=== PATIENT | female | born 1930 | race Asian ===

== ENCOUNTER 2018-12-04 18:35 | Inpatient (IN) | payer MEDICARE, OTHER ==
[~2018-12-04] VITALS: Ht 154.9 cm; Wt 56.4 kg
[2018-12-04] MEDS ORDERED: SOD CHLORIDE 0.9% 1,000 ML IV STA (19:31)
[2018-12-04] MEDS ORDERED: ONDANSETRON 4 MG INJ IV STA (19:31)
[2018-12-04] MEDS ORDERED: morphine 2 MG INJ IV STA (19:31)
[2018-12-04] MEDS ORDERED: MEGE40TA2 PO (21:27)
[2018-12-04] MEDS ORDERED: METO-319 PO (21:27)
[2018-12-04] MEDS ORDERED: RANO500T2 PO (21:27)
[2018-12-04] MEDS ORDERED: FER325 PO (21:27)
[2018-12-04] MEDS ORDERED: LOSA25TA12 PO (21:27)
[2018-12-04] MEDS ORDERED: GABA300C16 PO (21:27)
[2018-12-04] MEDS ORDERED: ATOR20TA38 PO (21:27)
[2018-12-04] MEDS ORDERED: DEXL30CA2 PO (21:27)
[2018-12-04] MEDS ORDERED: RAMI10CA48 PO (21:27)
[2018-12-04] MEDS ORDERED: CLOP75TA19 PO (21:27)
[2018-12-04] MEDS ORDERED: CEFTRIAXONE 1 GM/50 ML (PMX) 50 ML IVPB ONE (21:30)
[2018-12-04] MEDS ORDERED: IOHEXOL 350MG/ML 50 ML BTL ONE (21:43)
[2018-12-04] MEDS ORDERED: METOCLOPRAMIDE 10 MG INJ IV ONE (23:30)
--- NOTE | 2018-12-04 23:45 | ERD ---
ER Documentation Chief Complaint Chief Complaint AP WITH VOMITING X'S 2 DAYS HPI 88-year-old female with a history of hypertension presenting with epigastric abdominal pain for the past 3 days that has been constant, aching, nonradiating with associated nausea and nonbloody, nonbilious vomiting. Denies hematochezia or melena. Having normal bowel movements. No fever or chills. No dysuria. She is a very poor historian as his family. She states that she has not had surgery before, however her daughter states that she has but she does not know which surgery. ROS All systems reviewed and are negative except as per history of present illness. Medications Home Meds Reported Medications Metoprolol Succinate* (Toprol XL*) 50 Mg Tab.er.24h, 50 MG PO DAILY, #30 TAB 12/04/18 Dexlansoprazole (Dexilant) 30 Mg Cap.dr.mp, 30 MG PO DAILY PRN for GASTROINTE STINAL UPSET, #30 CAP 12/04/18 Losartan Potassium* (Losartan Potassium*) 25 Mg Tablet, 25 MG PO QAM, TAB 12/04/18 Gabapentin* (Gabapentin*) 300 Mg Capsule, 300 MG PO BID, #60 CAP 12/04/18 Clopidogrel Bisulfate* (Clopidogrel Bisulfate*) 75 Mg Tablet, 75 MG PO DAILY, #30 TAB 12/04/18 Ramipril (Ramipril) 10 Mg Capsule, 10 MG PO DAILY, CAP 12/04/18 Megestrol Acetate* (Megestrol Acetate*) 40 Mg Tablet, 40 MG PO QAM, TAB 12/04/18 Ranolazine* (Ranexa*) 500 Mg Tab.sr.12h, 500 MG PO Q12, TAB 12/04/18 Ferrous Sulfate* (Ferrous Sulfate*) 325 Mg Tabec, 325 MG PO QAM, TAB 12/04/18 Atorvastatin Calcium* (Atorvastatin Calcium*) 20 Mg Tablet, 20 MG PO QHS, #30 TAB 12/04/18 Allergies Allergies: Coded Allergies: Penicillins (Verified Allergy, Unknown, 12/04/18) PMhx/Soc Medical and Surgical Hx: pt denies Medical Hx, pt denies Surgical Hx History of Surgery: No Anesthesia Reaction: No Hx Neurological Disorder: No Hx Respiratory Disorders: No Hx Cardiac Disorders: Yes (HTN, HYPERLIPIDEMIA) Hx Psychiatric Problems: No Hx Miscellaneous Medical Probl: No Hx Alcohol Use: No Hx Substance Use: No Hx Tobacco Use: No Smoking Status: Never smoker FmHx Family History: No coronary disease Physical Exam Vitals Vital Signs Date Temp Pulse Resp B/P (MAP) Pulse Ox O2 O2 Flow FiO2 Time Delivery Rate 12/04/18 100 18 120/79 98 Room Air 23:01 (93) 12/04/18 95 18 111/64 97 Room Air 21:39 (80) 12/04/18 99.2 91 18 143/101 97 18:40 (115) Physical Exam Const: No acute distress Head: Atraumatic Eyes: Normal Conjunctiva ENT: Dry mucous membranes. Normal External Ears, Nose and Mouth. Neck: Full range of motion. No meningismus. Resp: Clear to auscultation bilaterally Cardio: Regular rate and rhythm, no murmurs. 2+ distal pulses in all 4 extremities Abd: Soft, non tender, non distended. No palpable mass. No pulsatile masses. Normal bowel sounds Skin: No petechiae or rashes Back: No midline or flank tenderness Ext: No cyanosis, or edema Neur: Awake and alert Psych: Normal Mood and Affect Result Diagram: 12/04/18195512/04/181955 Results 24 hrs Laboratory Tests Test 12/04/18 19:56 12/04/18 20:46 White Blood Count 11.1 10^3/ul Red Blood Count 4.51 10^6/ul Hemoglobin 14.0 g/dl Hematocrit 42.9 % Mean Corpuscular Volume 95.1 fl Mean Corpuscular Hemoglobin 31.0 pg Mean Corpuscular Hemoglobin Concent 32.6 g/dl Red Cell Distribution Width 13.1 % Platelet Count 265 10^3/UL Mean Platelet Volume 8.9 fl Immature Granulocytes % 0.700 % Neutrophils % 62.8 % Lymphocytes % 19.5 % Monocytes % 14.9 % Eosinophils % 1.0 % Basophils % 1.1 % Nucleated Red Blood Cells % 0.0 /100WBC Immature Granulocytes # 0.080 10^3/ul Neutrophils # 7.0 10^3/ul Lymphocytes # 2.2 10^3/ul Monocytes # 1.7 10^3/ul Eosinophils # 0.1 10^3/ul Basophils # 0.1 10^3/ul Nucleated Red Blood Cells # 0.0 10^3/ul Prothrombin Time 12.3 Sec Prothrombin Time Ratio 1.0 INR International Normalized Ratio 0.90 Activated Partial Thromboplast Time 31.8 Sec Urine Color YELLOW Urine Clarity CLOUDY Urine pH 6.0 Urine Specific [place] 1.008 Urine Ketones NEGATIVE mg/dL Urine Nitrite NEGATIVE mg/dL Urine Bilirubin NEGATIVE mg/dL Urine Urobilinogen NEGATIVE mg/dL Urine Leukocyte Esterase 3+ Yadira/ul Urine Microscopic RBC 26 /HPF Urine Microscopic WBC > 182 /HPF Urine Bacteria MANY /HPF Urine Hemoglobin 3+ mg/dL Urine Glucose NEGATIVE mg/dL Urine Total Protein NEGATIVE mg/dl Sodium Level 137 mmol/L Potassium Level 4.2 mmol/L Chloride Level 104 mmol/L Carbon Dioxide Level 23 mmol/L Anion Gap 10 Blood Urea Nitrogen 15 mg/dl Creatinine 0.90 mg/dl Est Glomerular Filtrat Rate mL/min mL/min Glucose Level 98 mg/dl Calcium Level 10.6 mg/dl Total Bilirubin 0.7 mg/dl Direct Bilirubin 0.00 mg/dl Indirect Bilirubin 0.7 mg/dl Aspartate Amino Transf (AST/SGOT) 25 IU/L Alanine Aminotransferase (ALT/SGPT) 7 IU/L Alkaline Phosphatase 65 IU/L Troponin I 0.077 ng/ml Total Protein 7.8 g/dl Albumin 4.2 g/dl Globulin 3.60 g/dl Albumin/Globulin Ratio 1.16 Lipase 152 U/L POC Venous Lactate 1.1 mmol/L Current Medications Medications Dose Sig/Rossy Start Time Status Last (Trade) Ordered Route PRN Stop Time Admin Dose Reason Admin Sodium 1,000 ml @ Q1H STAT 12/04/18 DC 12/04/18 Chloride 1,000 mls/hr IV 19:31 20:07 12/04/18 20:30 Morphine 2 mg ONCE STAT 12/04/18 DC 12/04/18 Sulfate IV 19:31 20:07 (morphine) 12/04/18 19:33 Ondansetron 4 mg ONCE STAT 12/04/18 DC 12/04/18 HCl (Zofran IV 19:31 20:07 Inj) 12/04/18 19:33 Ceftriaxone 50 ml @ ONCE ONCE 12/04/18 DC 12/04/18 Sodium 100 mls/hr IVPB 21:30 21:38 12/04/18 21:59 Iohexol 50 ml STK-MED 12/04/18 DC (Omnipaque ONCE .ROUTE 21:43 350mg/ ml) 12/04/18 21:44 5 mg ONCE ONCE 12/04/18 DC 12/04/18 Metoclopramid IV 23:30 23:25 e HCl 12/04/18 23:31 (Reglan) Procedures/MDM EMERGENT LABS AND DIAGNOSTIC STUDIES: Lab Results above were reviewed and interpreted by me. CBC: no anemia or evidence of infection CMP: No evidence of clinically significant electrolyte abnormality, acidosis, renal failure, hypoglycemia, liver disease, or biliary obstruction Lipase: no evidence of pancreatitis Troponin within normal limits, not indicative of cardiac ischemia Lactate within normal limits without evidence of sepsis or tissue hypoperfusion UA: Consistent with UTI 12-lead EKG was interpreted by Da Quigley MD: Sinus rhythm with PACs at 85 bpm LVH Normal intervals No acute ST or T wave changes suggestive of acute ischemia or STEMI. Radiology Results as interpreted by Radiology below were reviewed by Martell Quigley MD: CT abdomen and pelvis shows no acute abnormalities CTA chest, abdomen, pelvis shows thoracic ascending aneurysm without dissection or rupture. No evidence of ischemic bowel. No evidence of abdominal aortic aneurysm. Initial Nursing notes reviewed. Previous Medical Records requested via the Electronic Health Record. EMERGENCY DEPARTMENT COURSE / MEDICAL DECISION MAKING: Patient is presenting with upper abdominal pain with stable vitals. No evidence of acute surgical abdomen on exam. However given the patient's age, she is high risk for serious etiology for her pain. Labs not show any significant abnormalities other than UTI on urinalysis. CT of the abdomen and pelvis was done showing a thoracic aneurysm. For this reason CT angiogram was ordered to evaluate for possible dissection. CT angiogram did not show any acute abnormalities but an incidental finding of thoracic ascending aneurysm was noted. Patient was treated with IV fluids and antiemetics without improvement of her symptoms. Upon reevaluation, she is complaining of nausea and vomiting more than pain. Urinalysis is consistent with UTI. Doubt pyelonephritis. Doubt sepsis. Patient has been given antibiotics and will be admitted for further hydration, workup and management. Accepting Care Team: Current data and ongoing care discussed. Time: Time of admission Primary Provider: Dr. Zain Pressley Diagnosis: Primary Impression: Abdominal pain Abdominal location: upper abdomen, unspecified Qualified Codes: R10.10 - Upper abdominal pain, unspecified Additional Impressions: Intractable nausea and vomiting Vomiting type: unspecified Qualified Codes: R11.2 - Nausea with vomiting, unspecified Thoracic ascending aortic aneurysm UTI (urinary tract infection) Condition: Fair PATRICA QUIGLEY MD Dec 04, 2018 23:45
[2018-12-05] MEDS ORDERED: NACL 0.9% 3 ML SYG IV SCH
[2018-12-05] MEDS ORDERED: ACETAMINOPHEN 325 MG TAB PO PRN ×2
[2018-12-05] MEDS ORDERED: BISACODYL (EC) 5 MG TAB PO PRN
[2018-12-05] MEDS ORDERED: ONDANSETRON 4 MG INJ IV PRN ×2
[2018-12-05] MEDS ORDERED: DOCUSATE SODIUM 100 MG CAP PO PRN
[2018-12-05] MEDS: SOD CHLORIDE 0.9% 1,000 ML IV SCH ×3 (00:30→15:46)
[2018-12-05 00:51] VITALS: Ht 154.9 cm; Wt 56.4 kg
[2018-12-05 00:59] VITALS: BP 132/70; PULSE 86; RESP 18
--- NOTE | 2018-12-05 06:01 | HP ---
Date/Time of Note Date/Time of Note DATE: 12/05/18 TIME: 06:01 Assessment/Plan VTE Prophylaxis SCD applied (from Nsg): Yes Pharmacological prophylaxis: NA/contraindicated Pharm contraindication: low risk/ambulating Lines/Catheters IV Catheter Type (from Nrsg): Peripheral IV Urinary Cath still in place: No Assessment/Plan Hospital Course This is a 88-year-old female being admitted to the [facility] for: #1 abdominal pain: Likely multifactorial secondary to underlying urinary tract infection and/or possible underlying abdominal pelvic pathology. Patient does have urinary tract infection. At the current time will treat with ceftriaxone 1 g every 24 hours. Will await culture results. CT imaging studies concerning for possible underlying malignancy please see #2. #[address]:11 mm nodule lower pole right lobe thyroid gland. Question adenoma. Sonographic correlation could be performed. 2.9 cm low attenuation mass in the posterior mid to lower pole right kidney. Appearance is somewhat atypical for a cyst on noncontrast CT. Further evaluation with contrast enhanced CT abdomen is recommended to evaluate possible renal cell carcinoma. Multiple urinary bladder diverticula. Urinary bladder wall is also thickened which may be due to acute or chronic cystitis.Low attenuation area in the uterus measuring 18 cm in diameter. Finding is worrisome for abnormal endometrial thickening in a postmenopausal female, raising the possibility of endometrial neoplasm. Further evaluation with pelvic ultrasound presents with endovaginal probe if possible is recommended. -CT abdomen pelvis with contrast -Ultrasound of the thyroid, thyroid studies -Pelvic ultrasound -Hematology consultation #3 UTI: ceftriaxone 1 gram q 24hrs. #4 Aneurysmal Ascending thoracic aorta: 4.8 cm aneurysmal dilatation ascending thoracic aorta and 3.8 cm aneurysmal dilatation of the arch. No abdominal aortic aneurysm. No evidence of aortic dissection. At the current time we will need to manage blood pressure. Follow-up as an outpatient with CT surgery. #5 hypertension: Resume metoprolol, will need to confirm patient's home medications #6 questionable coronary artery disease: We will need to confirm patient's home medications, will hold off on Plavix at the current time given possible need for procedure. #7 GERD: Continue PPI #8 hyperlipidemia: Continue statin, confirm patient's home medications #9 DVT GI prophylaxis: SCDs, no GI prophylaxis indicated Further treatment strategy will be implemented as per the clinical course Will need to get in touch with family in the AM to corroborate history. Result Diagram: 12/04/18195512/04/181955 Results 24hrs Laboratory Tests Test 12/04/18 19:56 12/04/18 20:46 White Blood Count 11.1 H Red Blood Count 4.51 Hemoglobin 14.0 Hematocrit 42.9 Mean Corpuscular Volume 95.1 Mean Corpuscular Hemoglobin 31.0 Mean Corpuscular Hemoglobin Concent 32.6 Red Cell Distribution Width 13.1 Platelet Count 265 Mean Platelet Volume 8.9 Immature Granulocytes % 0.700 H Neutrophils % 62.8 Lymphocytes % 19.5 Monocytes % 14.9 H Eosinophils % 1.0 Basophils % 1.1 Nucleated Red Blood Cells % 0.0 Immature Granulocytes # 0.080 H Neutrophils # 7.0 Lymphocytes # 2.2 Monocytes # 1.7 H Eosinophils # 0.1 Basophils # 0.1 Nucleated Red Blood Cells # 0.0 Prothrombin Time 12.3 Prothrombin Time Ratio 1.0 INR International Normalized Ratio 0.90 Activated Partial Thromboplast Time 31.8 Urine Color YELLOW Urine Clarity CLOUDY A Urine pH 6.0 Urine Specific [place] 1.008 Urine Ketones NEGATIVE Urine Nitrite NEGATIVE Urine Bilirubin NEGATIVE Urine Urobilinogen NEGATIVE Urine Leukocyte Esterase 3+ H Urine Microscopic RBC 26 H Urine Microscopic WBC > 182 H Urine Bacteria MANY A Urine Hemoglobin 3+ H Urine Glucose NEGATIVE Urine Total Protein NEGATIVE Sodium Level 137 Potassium Level 4.2 Chloride Level 104 Carbon Dioxide Level 23 Anion Gap 10 Blood Urea Nitrogen 15 Creatinine 0.90 Est Glomerular Filtrat Rate mL/min Glucose Level 98 Calcium Level 10.6 H Total Bilirubin 0.7 Direct Bilirubin 0.00 Indirect Bilirubin 0.7 Aspartate Amino Transf (AST/SGOT) 25 Alanine Aminotransferase (ALT/SGPT) 7 L Alkaline Phosphatase 65 Troponin I 0.077 Total Protein 7.8 Albumin 4.2 Globulin 3.60 H Albumin/Globulin Ratio 1.16 Lipase 152 POC Venous Lactate 1.1 HPI/ROS Admit Date/Time Admit Date/Time Dec 04, 2018 at 23:39 Hx of Present Illness Chief complaint: Epigastric pain times 3 days 88-year-old female with a history of hypertension presenting with epigastric abdominal pain for the past 3 days that has been constant, aching, nonradiating with associated nausea and nonbloody, nonbilious vomiting. Denies hematochezia or melena. Having normal bowel movements. No fever or chills. No dysuria. Apparently patient has had a surgery before but she does not recall. She has been having increased urination. She denies any vaginal bleeding. No previous history of diagnosis of cancer. Allergies: Penicillin Medications: See MAR ROS Const: As per HPI Eyes : No pain discharge or redness or change in visual acuity ENT: No pain, sore throat, congestion, congestion, dysphagia or discharge Respiratory: No shortness of breath, cough, sputum, wheezing, or pleuritic pain Cardiovascular: No chest pain, palpitation, PND, or edema GI : As per HPI Genitourinary: As per HPI Musculoskeletal: No joint pain, back pain, neck pain, restricted range of motion in neck or joints Skin: No rash, bruising or hives Neuro: No headache, dizziness, syncope, seizure, focal weakness Endocrine: No polyuria, polydipsia, temperature intolerance Psych: No hallucination, depression, anxiety or suicidal ideation PMH/Family/Social Past Medical History HTN, HYPERLIPIDEMIA, coronary artery disease, acid reflux, anemia Medications Current Medications Ondansetron HCl (Zofran Inj) 4 mg BRIDGE ORDER PRN IV NAUSEA/VOMITING; Start 12/05/18 at 00:00; Stop 12/05/18 at 23:59 Acetaminophen (Tylenol Tab) 650 mg ER BRIDGE PRN PO .MILD PAIN 1-3 OR TEMP; Start 12/05/18 at 00:00; Stop 12/05/18 at 23:59 Sodium Chloride 1,000 ml @ 80 mls/hr [id number] IV Last administered on 12/05/18at 00:30; Admin Dose 80 MLS/HR; Start 12/04/18 at 23:41 IV Flush (NS 3 ml) 3 ml PER PROTOCOL IV ; Start 12/05/18 at 00:00 Ondansetron HCl (Zofran Inj) 4 mg Q6H PRN IV NAUSEA/VOMITING; Start 12/05/18 at 00:00 Acetaminophen (Tylenol Tab) 650 mg Q6H PRN PO .PAIN 1-3 OR TEMP; Start 12/05/18 at 00:00 Docusate Sodium (Colace) 100 mg Q12H PRN PO .CONSTIPATION; Start 12/05/18 at 00:00 Bisacodyl (Dulcolax) 5 mg DAILY PRN PO .CONSTIPATION; Start 12/05/18 at 00:00 Ceftriaxone Sodium 50 ml @ 100 mls/hr Q24H IVPB ; Start 12/05/18 at 21:00 Coded Allergies: Penicillins (Verified Allergy, Unknown, 12/04/18) Past Surgical History Unknown Family History Significant Family History: no pertinent family hx Social History Alcohol Use: none Smoking Status: Never smoker Drug Use: none Exam/Review of Systems Vital Signs Vitals Vital Signs Date Temp Pulse Resp B/P (MAP) Pulse Ox O2 O2 Flow FiO2 Time Delivery Rate 12/05/18 97.3 86 18 132/70 94 Room Air 00:59 (90) Intake and Output 12/04/18 12/04/18 12/05/18 1515:00 23:00 07:00 IntakeIntake Total 1050 ml 250 ml BalanceBalance 1050 ml 250 ml Exam Exam General: Patient is currently lying in bed in no acute distress HEENT: Atraumatic, normocephalic. The pupils are equal, round and reactive. Extraocular motor are intact Neck: Supple with full range of motion. No rigidity or meningismus Chest: Nontender Lungs: Clear to auscultation bilaterally no crackles rales or wheezing Heart: Normal S1-S2, Regular rhythm and rate. No murmur, S3, or S4 Abdomen: Soft , tenderness around the umbilicus area and suprapubic region, nondistended , bowel sounds are present. No guarding no rebound tenderness , No masses or organomegaly. No costovertebral temporal angle mass Extremities: Normal to inspection, no edema no cyanosis Neurologic: Normal mental status, speech normal, cranial nerves II through XII are intact, motor and sensory are intact, Additional Comments PROCEDURE: CT abdomen and pelvis without contrast. CLINICAL INDICATION: 88-year-old female. Abdominal pain with vomiting for 2 days. TECHNIQUE: CT scan of the abdomen and pelvis without contrast was performed on a multi-slice CT scanner utilizing axial imaging from the lung bases through the pubis symphysis. One or more the following does reduction techniques were utilized: Automated exposure control, adjustment of the mA/ or kV according to patient's size, or use of iterative reconstruction technique. Sagittal and coronal reformatted images were made. DICOM images are available for review. The CTDIvol is 5.96 mGy and the DLP is 319.05 mGycm. COMPARISON: None. FINDINGS: CT abdomen Visualized lung bases: Atelectasis posterior right lower lobe. 1.5 cm soft tissue mass with central calcification right lower lobe (series 3 image 7). Pleural parenchymal thickening posterior lingula. Aneurysmal dilatation of the ascending thoracic aorta, measuring 4.5 cm. No significant pleural or pericardial effusion. Liver: Limited evaluation without IV contrast. 2 low attenuation lesions at the dome of the right hepatic lobe, largest measuring 2.5 cm. Gallbladder and bile ducts: Small calcified gallstones are present in the gallbladder. No biliary ductal dilatation. Spleen: Normal appearance. Pancreas: Normal appearance. No ductal dilatation. No mass. No peripancreatic stranding. Adrenal glands: Normal appearance. 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 2.9 cm low attenuation mass posterior mid to lower pole right kidney, somewhat atypical appearance for a cyst. No hydronephrosis. No calcified renal stones. Vasculature: No abdominal aortic aneurysm. Calcified plaque present. Negative IVC. Lymph nodes: No adenopathy. GI: There filled distal esophagus. No hiatal hernia. Decompressed stomach. No evidence of obstruction or bowel wall thickening. Diverticulosis descending colon. Peritoneal cavity: No free fluid or free air. CT pelvis GI: Negative terminal ileum. Appendix is not identified. Minimal sigmoid diverticulosis. Negative rectum. : There are least 3 urinary bladder diverticula identified. New circumferential urinary bladder wall thickening. Low attenuation area in the uterus measuring 18 mm in diameter on coronal images. This could represent an abnormally thickened endometrium or submucosal leiomyoma. No adnexal mass. Peritoneal cavity: No free fluid. Small left-sided fat filled inguinal hernia. Lymph nodes: No adenopathy. Osseous structures: The bones are demineralized. No endplate fractures. Multilevel thoracic and lumbar disc degeneration with vacuum phenomenon. Bilateral L4-5 and L5-S1 facet arthrosis. IMPRESSION: 1. Ascending thoracic aortic aneurysm, incompletely imaged. CT angiography of the chest recommended for further evaluation. 2. 1.5 cm soft tissue mass with central calcification in the right lower lobe. The central calcification suggests a benign or granulomatous etiology. This could also be further evaluated with the CT angiogram chest exam. 3. Cholelithiasis. 4. 2.9 cm low attenuation mass in the posterior mid to lower pole right kidney. Appearance is somewhat atypical for a cyst on noncontrast CT. Further evaluation with contrast enhanced CT abdomen is recommended to evaluate possible renal cell carcinoma. 5. Multiple urinary bladder diverticula. Urinary bladder wall is also thickened which may be due to acute or chronic cystitis. 6. Low attenuation area in the uterus measuring 18 cm in diameter. Finding is worrisome for abnormal endometrial thickening in a postmenopausal female, raising the possibility of endometrial neoplasm. Further evaluation with pelvic ultrasound presents with endovaginal probe if possible) is recommended. RPTAT: HL[facility] Physician Justin Date Time Electronically viewed and signed by Physician Justin on 12/04/2018 21:13 RS/ CC: PATRICA CAMP MD [id number] PROCEDURE: CT Chest, Abdomen and Pelvis with contrast. CLINICAL INDICATION: Abdominal pain. Chest pain. Dissection. TECHNIQUE: CT scan of the chest, abdomen, and pelvis with contrast was performed on a multi-detector high-resolution CT scanner. The patient was scanned following the uncomplicated intravenous administration of 100 cc of Omnipaque 300 intravenous contrast. Coronal and sagittal reformatted images were obtained from the axial source images. Images were reviewed on a high- resolution PACS workstation. The total exam CTDI equals 21 mGy and the total exam DLP equals 379 mGy-cm. DICOM images are available. One or more of the following dose reduction techniques were utilized: 1.) Automated exposure control 2.) Adjustment of the mA +/- kV according to patient's size 3.) Use of iterative reconstruction technique. COMPARISON: CT abdomen pelvis earlier same date FINDINGS: CT chest: There is aneurysmal dilatation of the ascending thoracic aorta which measures 4.8 cm in diameter and the arch and measures 3.8 cm in diameter. No dissection is present and there is no intramural hemorrhage. There is minimal calcified plaque in the wall of the aorta. Main pulmonary artery is not dilated measuring 3.2 cm in diameter. No pulmonary embolism is visualized. There is no pleural or pericardial effusion. No hilar or mediastinal adenopathy or mass is seen. There is an 11 mm hypodense nodule on the lower pole of the right lobe of the thyroid gland. Noted is plate-like atelectasis in the right middle lobe. No alveolar infiltrate or mass is present. There is no pneumothorax. Note chest wall mass is detected. There is no axillary, supraclavicular or internal mammary chain adenopathy. Degenerative spondylosis is noted in the thoracic spine. CT abdomen and pelvis: The liver is of normal size, contour and attenuation with no solid mass or ductal dilatation. Noted is a 2 cm cyst at the diaphragmatic aspect of the posterior segment of the right lobe. Small gallstones are present. No splenic or adrenal abnormality is present. The kidneys enhance symmetrically with no hydronephrosis. No calculus is present. Noted is a 2.2 cm well-demarcated noncalcified homogeneously enhancing solid mass on the medial upper pole of the left kidney and a second 13 mm solid noncalcified nodule on the lateral upper pole of the left kidney. 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 Ureters are of normal course and caliber with no stone. No bladder masses stone is present. Uterus is normal. No adnexal mass is present. Abdominal aorta is of normal course and caliber with no aneurysm. There is no dissection. The iliac arteries appear normal. Minimal calcified plaque is seen in the vessels. There is no adenopathy. No bowel mass or obstruction is visualized. The appendix is not well seen. No phlegmon, ascites or pneumoperitoneum is detected. The osseous structures appear normal. IMPRESSION: 4.8 cm aneurysmal dilatation ascending thoracic aorta and 3.8 cm aneurysmal dilatation of the arch. No abdominal aortic aneurysm. No evidence of aortic dissection. 11 mm nodule lower pole right lobe thyroid gland. Question adenoma. Sonographic correlation could be performed. Plate-like atelectasis right middle lobe. Cholelithiasis. Tiny right renal angiomyolipoma. 2 Indeterminate solid masses upper pole left kidney. Renal cell carcinoma cannot be ruled out. Consider biopsy. .Ad Norman MD, MD Date Time Electronically viewed and signed by .Ad Norman MD, on 12/04/2018 22:38 .A/ CC: PATRICA CAMP MD [id number] REBECCA CABRERA Dec 05, 2018 06:01
[2018-12-05] MEDS ORDERED: SOD CHLORIDE 0.9% 100 ML ONE (07:48)
[2018-12-05] MEDS ORDERED: IODIXANOL LOCM 100 ML BTL ONE (07:48)
[2018-12-05 08:00] VITALS: BP 119/72; PULSE 84; RESP 18
[2018-12-05] MEDS: FERROUS SULFATE (EC) 325 MG TAB PO SCH (09:13)
[2018-12-05] MEDS: METOPROLOL (XL) 50 MG TAB PO SCH (09:14)
[2018-12-05] MEDS: LOSARTAN 25 MG TAB PO SCH (09:15)
--- NOTE | 2018-12-05 12:39 | CONS ---
Assessment/Plan Assessment/Plan Hospital Course (Demo Recall) 88 yo with abdominal pain, CT AP shows 2 complex renal masses in left kidney suspicious for malignancy check MRI abdo and pelvis once we have above results, if radiographically appears malignant, recommend further w.u with bone scan and urology eval she is very frail and may not be a surgical candidate, in those cases can potentially offer ablation but may be difficult given that there are 2 lesions await above w/u no tumor markers are helpful in diagnosis of RCCa check LDH for prognostication Consultation Date/Type/Reason Admit Date/Time Dec 04, 2018 at 23:39 Date/Time of Note DATE: 12/05/18 TIME: 12:39 Hx of Present Illness 88-year-old female with a history of hypertension presenting with epigastric abdominal pain for the past 3 days that has been constant, aching, also notes urinary frequency. She had CT AP without contrast showin. Ascending thoracic aortic aneurysm, incompletely imaged. CT angiography of the chest recommended for further evaluation. 2. 1.5 cm soft tissue mass with central calcification in the right lower lobe. The central calcification suggests a benign or granulomatous etiology. This could also be further evaluated with the CT angiogram chest exam. 3. Cholelithiasis. 4. 2.9 cm low attenuation mass in the posterior mid to lower pole right kidney. Appearance is somewhat atypical for a cyst on noncontrast CT. Further evaluation with contrast enhanced CT abdomen is recommended to evaluate possible renal cell carcinoma. 5. Multiple urinary bladder diverticula. Urinary bladder wall is also thickened which may be due to acute or chronic cystitis. 6. Low attenuation area in the uterus measuring 18 cm in diameter. Finding is worrisome for abnormal endometrial thickening in a postmenopausal female, raising the possibility of endometrial neoplasm. Further evaluation with pelvic ultrasound presents with endovaginal probe if possible) is recommended. she then had CT AP with contrast showin. COMPLEX APPEARING 2.1 CM LESION WITHIN THE ANTERIOR ASPECT OF THE UPPER POLE OF THE LEFT KIDNEY, WITH EVIDENCE OF MILD ENHANCEMENT WELL A 1.5 CM LESION WITHIN THE LEFT SIDE OF THE MID POLE LEFT KIDNEY WITH EVIDENCE OF POSITIVE ENHANCEMENT. BOTH LESIONS ARE SUSPICIOUS FOR POSSIBLE MALIGNANCY SUCH RENAL CELL CARCINOMA. Constitutional: no complaints, improved ENT: no complaints Respiratory: no complaints Cardiovascular: no complaints Gastrointestinal: no complaints Genitourinary: no complaints Musculoskeletal: no complaints Past Medical History Home Meds Reported Medications Metoprolol Succinate* (Toprol XL*) 50 Mg Tab.er.24h, 50 MG PO DAILY, #30 TAB 12/04/18 Dexlansoprazole (Dexilant) 30 Mg mp, 30 MG PO DAILY PRN for GASTROINTESTINAL UPSET, #30 CAP 12/04/18 Losartan Potassium* (Losartan Potassium*) 25 Mg Tablet, 25 MG PO QAM, TAB 12/04/18 Gabapentin* (Gabapentin*) 300 Mg Capsule, 300 MG PO BID, #60 CAP 12/04/18 Clopidogrel Bisulfate* (Clopidogrel Bisulfate*) 75 Mg Tablet, 75 MG PO DAILY, #30 TAB 12/04/18 Ramipril (Ramipril) 10 Mg Capsule, 10 MG PO DAILY, CAP 12/04/18 Megestrol Acetate* (Megestrol Acetate*) 40 Mg Tablet, 40 MG PO QAM, TAB 12/04/18 Ranolazine* (Ranexa*) 500 Mg Tab.sr.12h, 500 MG PO Q12, TAB 12/04/18 Ferrous Sulfate* (Ferrous Sulfate*) 325 Mg Tabec, 325 MG PO QAM, TAB 12/04/18 Atorvastatin Calcium* (Atorvastatin Calcium*) 20 Mg Tablet, 20 MG PO QHS, #30 TAB 12/04/18 Medications Current Medications Ondansetron HCl (Zofran Inj) 4 mg BRIDGE ORDER PRN IV NAUSEA/VOMITING; Start 12/05/18 at 00:00; Stop 12/05/18 at 23:59 Acetaminophen (Tylenol Tab) 650 mg ER BRIDGE PRN PO .MILD PAIN 1-3 OR TEMP; Start 12/05/18 at 00:00; Stop 12/05/18 at 23:59 Sodium Chloride 1,000 ml @ 80 mls/hr [id number] IV Last administered on 12/05/18at 00:30; Admin Dose 80 MLS/HR; Start 12/04/18 at 23:41 IV Flush (NS 3 ml) 3 ml PER PROTOCOL IV ; Start 12/05/18 at 00:00 Ondansetron HCl (Zofran Inj) 4 mg Q6H PRN IV NAUSEA/VOMITING; Start 12/05/18 at 00:00 Acetaminophen (Tylenol Tab) 650 mg Q6H PRN PO .PAIN 1-3 OR TEMP Last a dministered on 12/05/18at 07:49; Admin Dose 650 MG; Start 12/05/18 at 00:00 Docusate Sodium (Colace) 100 mg Q12H PRN PO .CONSTIPATION; Start 12/05/18 at 00:00 Bisacodyl (Dulcolax) 5 mg DAILY PRN PO .CONSTIPATION; Start 12/05/18 at 00:00 Ceftriaxone Sodium 50 ml @ 100 mls/hr Q24H IVPB ; Start 12/05/18 at 21:00 Atorvastatin Calcium (Lipitor) 20 mg QHS PO ; Start 12/05/18 at 21:00 Ferrous Sulfate (Ferrous Sulfate (Ec)) 325 mg QAM PO Last administered on 12/05/18at 09:13; Admin Dose 325 MG; Start 12/05/18 at 09:00 Losartan Potassium (Cozaar) 25 mg QAM PO Last administered on 12/05/18at 09:15; Admin Dose 25 MG; Start 12/05/18 at 09:00 Metoprolol Succinate (Toprol Xl) 50 mg DAILY PO Last administered on 12/05/18at 09:14; Admin Dose 50 MG; Start 12/05/18 at 09:00 Allergies: Coded Allergies: Penicillins (Verified Allergy, Unknown, 12/04/18) Social History Alcohol Use: none Smoking Status: Never smoker Drug Use: none Exam/Review of Systems Exam Vitals Vital Signs Date Temp Pulse Resp B/P (MAP) Pulse Ox O2 O2 Flow FiO2 Time Delivery Rate 12/05/18 98.7 84 18 119/72 97 08:00 (88) 12/05/18 Room Air 00:59 Intake and Output 12/04/18 12/04/18 12/05/18 1515:00 23:00 07:00 IntakeIntake Total 1050 ml 250 ml BalanceBalance 1050 ml 250 ml Constitutional: frail Psych: no complaints, nl mood/affect Head: normocephalic, atraumatic Eyes: nl conjunctiva, EOMI, nl lids, nl sclera, PERRL Neck: supple, non-tender Respiratory: normal air movement Cardiovascular: nl pulses Gastrointestinal: soft, nl liver, spleen, non-tender Neurological: nl strength Results Result Diagram: 12/05/18 0601 12/05/18 0601 Results 24hrs Laboratory Tests Test 12/04/18 19:56 4/16/19 20:46 12/05/18 06:01 White Blood Count 11.1 H 10.0 Red Blood Count 4.51 4.18 L Hemoglobin 14.0 12.8 Hematocrit 42.9 40.1 Mean Corpuscular Volume 95.1 95.9 Mean Corpuscular Hemoglobin 31.0 30.6 Mean Corpuscular Hemoglobin Concent 32.6 31.9 L Red Cell Distribution Width 13.1 13.2 Platelet Count 265 250 Mean Platelet Volume 8.9 9.1 Immature Granulocytes % 0.700 H 0.800 H Neutrophils % 62.8 65.8 Lymphocytes % 19.5 19.8 Monocytes % 14.9 H 11.1 H Eosinophils % 1.0 1.3 Basophils % 1.1 1.2 Nucleated Red Blood Cells % 0.0 0.0 Immature Granulocytes # 0.080 H 0.080 H Neutrophils # 7.0 6.6 Lymphocytes # 2.2 2.0 Monocytes # 1.7 H 1.1 H Eosinophils # 0.1 0.1 Basophils # 0.1 0.1 Nucleated Red Blood Cells # 0.0 0.0 Prothrombin Time 12.3 Prothrombin Time Ratio 1.0 INR International Normalized Ratio 0.90 Activated Partial Thromboplast Time 31.8 Urine Color YELLOW Urine Clarity CLOUDY A Urine pH 6.0 Urine Specific [place] 1.008 Urine Ketones NEGATIVE Urine Nitrite NEGATIVE Urine Bilirubin NEGATIVE Urine Urobilinogen NEGATIVE Urine Leukocyte Esterase 3+ H Urine Microscopic RBC 26 H Urine Microscopic WBC > 182 H Urine Bacteria MANY A Urine Hemoglobin 3+ H Urine Glucose NEGATIVE Urine Total Protein NEGATIVE Sodium Level 137 141 Potassium Level 4.2 3.9 Chloride Level 104 106 Carbon Dioxide Level 23 26 Anion Gap 10 9 Blood Urea Nitrogen 15 11 Creatinine 0.90 0.76 Est Glomerular Filtrat Rate mL/min Glucose Level 98 99 Calcium Level 10.6 H 9.6 Total Bilirubin 0.7 0.5 Direct Bilirubin 0.00 0.00 Indirect Bilirubin 0.7 0.5 Aspartate Amino Transf (AST/SGOT) 25 21 Alanine Aminotransferase (ALT/SGPT) 7 L 11 L Alkaline Phosphatase 65 52 Troponin I 0.077 Total Protein 7.8 6.8 # Albumin 4.2 3.6 Globulin 3.60 H 3.20 Albumin/Globulin Ratio 1.16 1.12 Lipase 152 POC Venous Lactate 1.1 Hemoglobin A1c 4.9 Magnesium Level 2.2 Thyroid Stimulating Hormone (TSH) 2.360 Free Thyroxine 1.49 Free Triiodothyronine (T3) pg/mL 3.75 Medications Medication Current Medications Ondansetron HCl (Zofran Inj) 4 mg BRIDGE ORDER PRN IV NAUSEA/VOMITING; Start 12/05/18 at 00:00; Stop 12/05/18 at 23:59 Acetaminophen (Tylenol Tab) 650 mg ER BRIDGE PRN PO .MILD PAIN 1-3 OR TEMP; Start 12/05/18 at 00:00; Stop 12/05/18 at 23:59 Sodium Chloride 1,000 ml @ 80 mls/hr [id number] IV Last administered on 12/05/18at 00:30; Admin Dose 80 MLS/HR; Start 12/04/18 at 23:41 IV Flush (NS 3 ml) 3 ml PER PROTOCOL IV ; Start 12/05/18 at 00:00 Ondansetron HCl (Zofran Inj) 4 mg Q6H PRN IV NAUSEA/VOMITING; Start 12/05/18 at 00:00 Acetaminophen (Tylenol Tab) 650 mg Q6H PRN PO .PAIN 1-3 OR TEMP Last administered on 12/05/18at 07:49; Admin Dose 650 MG; Start 12/05/18 at 00:00 Docusate Sodium (Colace) 100 mg Q12H PRN PO .CONSTIPATION; Start 12/05/18 at 00:00 Bisacodyl (Dulcolax) 5 mg DAILY PRN PO .CONSTIPATION; Start 12/05/18 at 00:00 Ceftriaxone Sodium 50 ml @ 100 mls/hr Q24H IVPB ; Start 12/05/18 at 21:00 Atorvastatin Calcium (Lipitor) 20 mg QHS PO ; Start 12/05/18 at 21:00 Ferrous Sulfate (Ferrous Sulfate (Ec)) 325 mg QAM PO Last administered on 12/05/18at 09:13; Admin Dose 325 MG; Start 12/05/18 at 09:00 Losartan Potassium (Cozaar) 25 mg QAM PO Last administered on 12/05/18at 09:15; Admin Dose 25 MG; Start 12/05/18 at 09:00 Metoprolol Succinate (Toprol Xl) 50 mg DAILY PO Last administered on 12/05/18at 09:14; Admin Dose 50 MG; Start 12/05/18 at 09:00 TANESHA GOOD Dec 05, 2018 12:39
[2018-12-05] MEDS: CEPASTAT LOZENGE MT PRN ×2 (13:35→15:48)
[2018-12-05 14:00] VITALS: BP 134/62; PULSE 77; RESP 18
[2018-12-05] MEDS ORDERED: VANCOMYCIN IV PER PHARMACY XX SCH (15:00)
[2018-12-05] MEDS ORDERED: VANCOMYCIN 1 GM 250 ML IVPB SCH (17:00)
--- NOTE | 2018-12-05 17:45 | PN ---
Date/Time of Note Date/Time of Note DATE: 12/05/18 TIME: 17:45 Assessment/Plan VTE Prophylaxis Risk score (from Ns)>0 risk: 3 SCD applied (from Ns): Yes Pharmacological prophylaxis: heparin Lines/Catheters IV Catheter Type (from Nrs): Peripheral IV Urinary Cath still in place: No Assessment/Plan Hospital Course 88 yo female with hypertension who presents with abdominal pain likely 2/2 UTI UTI - Continue abx, await speciation GPC bacteremia - Continue vanco, possible contaminant Renal, endometrial, thyroid lesions: - Discuss with isabella'ts daughter. Josep will follow up for surveillance as an outpatient Hypertension: - Continue home meds Dc to home tomorrow hopefully Result Diagram: 12/05/18 0601 12/05/18 0601 Results 24hrs Laboratory Tests Test 12/04/18 19:56 12/04/18 20:46 12/05/18 06:01 White Blood Count 11.1 H 10.0 Red Blood Count 4.51 4.18 L Hemoglobin 14.0 12.8 Hematocrit 42.9 40.1 Mean Corpuscular Volume 95.1 95.9 Mean Corpuscular Hemoglobin 31.0 30.6 Mean Corpuscular Hemoglobin Concent 32.6 31.9 L Red Cell Distribution Width 13.1 13.2 Platelet Count 265 250 Mean Platelet Volume 8.9 9.1 Immature Granulocytes % 0.700 H 0.800 H Neutrophils % 62.8 65.8 Lymphocytes % 19.5 19.8 Monocytes % 14.9 H 11.1 H Eosinophils % 1.0 1.3 Basophils % 1.1 1.2 Nucleated Red Blood Cells % 0.0 0.0 Immature Granulocytes # 0.080 H 0.080 H Neutrophils # 7.0 6.6 Lymphocytes # 2.2 2.0 Monocytes # 1.7 H 1.1 H Eosinophils # 0.1 0.1 Basophils # 0.1 0.1 Nucleated Red Blood Cells # 0.0 0.0 Prothrombin Time 12.3 Prothrombin Time Ratio 1.0 INR International Normalized Ratio 0.90 Activated Partial Thromboplast Time 31.8 Urine Color YELLOW Urine Clarity CLOUDY A Urine pH 6.0 Urine Specific [place] 1.008 Urine Ketones NEGATIVE Urine Nitrite NEGATIVE Urine Bilirubin NEGATIVE Urine Urobilinogen NEGATIVE Urine Leukocyte Esterase 3+ H Urine Microscopic RBC 26 H Urine Microscopic WBC > 182 H Urine Bacteria MANY A Urine Hemoglobin 3+ H Urine Glucose NEGATIVE Urine Total Protein NEGATIVE Sodium Level 137 141 Potassium Level 4.2 3.9 Chloride Level 104 106 Carbon Dioxide Level 23 26 Anion Gap 10 9 Blood Urea Nitrogen 15 11 Creatinine 0.90 0.76 Est Glomerular Filtrat Rate mL/min Glucose Level 98 99 Calcium Level 10.6 H 9.6 Total Bilirubin 0.7 0.5 Direct Bilirubin 0.00 0.00 Indirect Bilirubin 0.7 0.5 Aspartate Amino Transf (AST/SGOT) 25 21 Alanine Aminotransferase (ALT/SGPT) 7 L 11 L Alkaline Phosphatase 65 52 Troponin I 0.077 Total Protein 7.8 6.8 # Albumin 4.2 3.6 Globulin 3.60 H 3.20 Albumin/Globulin Ratio 1.16 1.12 Lipase 152 POC Venous Lactate 1.1 Hemoglobin A1c 4.9 Magnesium Level 2.2 Thyroid Stimulating Hormone (TSH) 2.360 Free Thyroxine 1.49 Free Triiodothyronine (T3) pg/mL 3.75 Subjective 24 Hr Interval Summary Constitutional: no complaints, improved Eyes: no complaints ENT: no complaints Respiratory: no complaints Cardiovascular: no complaints Gastrointestinal: no complaints Genitourinary: no complaints Musculoskeletal: no complaints Skin: no complaints Neurologic: no complaints Endocrine: no complaints Lymphatic: no complaints Psychological: no complaints, nl mood/affect Immunologic: no complaints Exam/Review of Systems Exam Vitals Vital Signs Date Temp Pulse Resp B/P (MAP) Pulse Ox O2 O2 Flow FiO2 Time Delivery Rate 12/05/18 97.9 77 18 134/62 96 Room Air 14:00 (86) Intake and Output 12/04/18 12/04/18 12/05/18 1515:00 23:00 07:00 IntakeIntake Total 1050 ml 250 ml BalanceBalance 1050 ml 250 ml Constitutional: alert, oriented, well developed Psych: no complaints, nl mood/affect Head: normocephalic, atraumatic Eyes: nl conjunctiva, EOMI, nl lids, nl sclera, PERRL ENMT: nl external ears & nose, nl lips & teeth, nl nasal mucosa & septum Neck: supple, non-tender Respiratory: clear to auscultation, normal air movement Cardiovascular: regular rate and rhythm, nl pulses Gastrointestinal: soft, nl liver, spleen, non-tender Musculoskeletal: nl extremities to inspection, nl gait and stance Extremities: normal pulses Neurological: [employer] II-XII intact, nl mental status, nl speech, nl strength Skin: nl turgor; No rash or lesions Lymph: nl lymph nodes Results Results 24hrs Laboratory Tests Test 12/04/18 19:56 12/04/18 20:46 12/05/18 06:01 White Blood Count 11.1 H 10.0 Red Blood Count 4.51 4.18 L Hemoglobin 14.0 12.8 Hematocrit 42.9 40.1 Mean Corpuscular Volume 95.1 95.9 Mean Corpuscular Hemoglobin 31.0 30.6 Mean Corpuscular Hemoglobin Concent 32.6 31.9 L Red Cell Distribution Width 13.1 13.2 Platelet Count 265 250 Mean Platelet Volume 8.9 9.1 Immature Granulocytes % 0.700 H 0.800 H Neutrophils % 62.8 65.8 Lymphocytes % 19.5 19.8 Monocytes % 14.9 H 11.1 H Eosinophils % 1.0 1.3 Basophils % 1.1 1.2 Nucleated Red Blood Cells % 0.0 0.0 Immature Granulocytes # 0.080 H 0.080 H Neutrophils # 7.0 6.6 Lymphocytes # 2.2 2.0 Monocytes # 1.7 H 1.1 H Eosinophils # 0.1 0.1 Basophils # 0.1 0.1 Nucleated Red Blood Cells # 0.0 0.0 Prothrombin Time 12.3 Prothrombin Time Ratio 1.0 INR International Normalized Ratio 0.90 Activated Partial Thromboplast Time 31.8 Urine Color YELLOW Urine Clarity CLOUDY A Urine pH 6.0 Urine Specific [place] 1.008 Urine Ketones NEGATIVE Urine Nitrite NEGATIVE Urine Bilirubin NEGATIVE Urine Urobilinogen NEGATIVE Urine Leukocyte Esterase 3+ H Urine Microscopic RBC 26 H Urine Microscopic WBC > 182 H Urine Bacteria MANY A Urine Hemoglobin 3+ H Urine Glucose NEGATIVE Urine Total Protein NEGATIVE Sodium Level 137 141 Potassium Level 4.2 3.9 Chloride Level 104 106 Carbon Dioxide Level 23 26 Anion Gap 10 9 Blood Urea Nitrogen 15 11 Creatinine 0.90 0.76 Est Glomerular Filtrat Rate mL/min Glucose Level 98 99 Calcium Level 10.6 H 9.6 Total Bilirubin 0.7 0.5 Direct Bilirubin 0.00 0.00 Indirect Bilirubin 0.7 0.5 Aspartate Amino Transf (AST/SGOT) 25 21 Alanine Aminotransferase (ALT/SGPT) 7 L 11 L Alkaline Phosphatase 65 52 Troponin I 0.077 Total Protein 7.8 6.8 # Albumin 4.2 3.6 Globulin 3.60 H 3.20 Albumin/Globulin Ratio 1.16 1.12 Lipase 152 POC Venous Lactate 1.1 Hemoglobin A1c 4.9 Magnesium Level 2.2 Thyroid Stimulating Hormone (TSH) 2.360 Free Thyroxine 1.49 Free Triiodothyronine (T3) pg/mL 3.75 Medications Medication Current Medications Sodium Chloride 1,000 ml @ 80 mls/hr [id number] IV Last administered on 12/05/18at 15:46; Admin Dose 80 MLS/HR; Start 12/04/18 at 23:41 IV Flush (NS 3 ml) 3 ml PER PROTOCOL IV ; Start 12/05/18 at 00:00 Ondansetron HCl (Zofran Inj) 4 mg Q6H PRN IV NAUSEA/VOMITING; Start 12/05/18 at 00:00 Acetaminophen (Tylenol Tab) 650 mg Q6H PRN PO .PAIN 1-3 OR TEMP Last administered on 12/05/18at 07:49; Admin Dose 650 MG; Start 12/05/18 at 00:00 Docusate Sodium (Colace) 100 mg Q12H PRN PO .CONSTIPATION; Start 12/05/18 at 00:00 Bisacodyl (Dulcolax) 5 mg DAILY PRN PO .CONSTIPATION; Start 12/05/18 at 00:00 Ceftriaxone Sodium 50 ml @ 100 mls/hr Q24H IVPB ; Start 12/05/18 at 21:00 Atorvastatin Calcium (Lipitor) 20 mg QHS PO ; Start 12/05/18 at 21:00 Ferrous Sulfate (Ferrous Sulfate (Ec)) 325 mg QAM PO Last administered on at 09:13; Admin Dose 325 MG; Start 12/05/18 at 09:00 Losartan Potassium (Cozaar) 25 mg QAM PO Last administered on 12/05/18 09:15; Admin Dose 25 MG; Start 12/05/18 at 09:00 Metoprolol Succinate (Toprol Xl) 50 mg DAILY PO Last administered on 12/05/18 09:14; Admin Dose 50 MG; Start 12/05/18 at 09:00 Phenol (Cepastat Lozenge) 1 lozenge Q1H PRN MT cough Last administered on 12/05/18at 15:48; Admin Dose 1 LOZENGE; Start 12/05/18 at 13:30 Vancomycin HCl (Vanco Iv Per Pharmacy) VANCOMYCIN PER PHARMACY PER PROTOCOL XX ; Start 12/05/18 at 15:00 Vancomycin/Sodium Chloride 250 ml @ 125 mls/hr Q24H IVPB ; Start 12/06/18 at 17:00 MAHOGANY BLAKE MD Dec 05, 2018 17:45
[2018-12-05 19:49] VITALS: BP 135/63; PULSE 75; RESP 19
[2018-12-05] MEDS: ATORVASTATIN 20 MG TAB PO SCH (21:06)
[2018-12-05] MEDS: CEFTRIAXONE 1 GM/50 ML (PMX) 50 ML IVPB SCH (21:06)
[2018-12-06 02:00] VITALS: BP 123/68; PULSE 72; RESP 18
[2018-12-06 08:00] VITALS: BP 161/74; PULSE 72; RESP 18
[2018-12-06] MEDS: LOSARTAN 25 MG TAB PO SCH (08:20)
[2018-12-06] MEDS: FERROUS SULFATE (EC) 325 MG TAB PO SCH (08:20)
[2018-12-06] MEDS: METOPROLOL (XL) 50 MG TAB PO SCH (08:21)
[2018-12-06] MEDS: CEPASTAT LOZENGE MT PRN (11:09)
[2018-12-06 14:00] VITALS: BP 206/91; PULSE 72; RESP 18
[2018-12-06] MEDS ORDERED: hydrALAzine 20 MG INJ IV PRN (15:30)
--- NOTE | 2018-12-06 16:22 | PN ---
Date/Time of Note Date/Time of Note DATE: 12/06/18 TIME: 16:20 Assessment/Plan VTE Prophylaxis Risk score (from Nsg)>0 risk: 3 SCD applied (from Nsg): Yes Pharmacological prophylaxis: heparin Lines/Catheters IV Catheter Type (from Nrsg): [place] Urinary Cath still in place: No Assessment/Plan Hospital Course 88 yo female with hypertension who presents with abdominal pain likely 2/2 UTI UTI - Continue abx, await speciation GPC bacteremia - Continue vanco, possible contaminant Renal, endometrial, thyroid lesions: - Discuss with isabella'ts daughter. Josep will follow up for surveillance as an outpatient Hypertension: - Continue home meds Dc to home tomorrow hopefully Result Diagram: 12/06/18 0532 12/06/18 0532 Results 24hrs Laboratory Tests Test 12/06/18 05:32 White Blood Count 12.5 #H Red Blood Count 4.02 L Hemoglobin 12.5 Hematocrit 38.5 Mean Corpuscular Volume 95.8 Mean Corpuscular Hemoglobin 31.1 Mean Corpuscular Hemoglobin Concent 32.5 Red Cell Distribution Width 13.2 Platelet Count 242 Mean Platelet Volume 9.1 Immature Granulocytes % 0.600 H Neutrophils % 77.2 H Lymphocytes % 13.0 L Monocytes % 7.6 Eosinophils % 0.6 Basophils % 1.0 Nucleated Red Blood Cells % 0.0 Immature Granulocytes # 0.080 H Neutrophils # 9.6 H Lymphocytes # 1.6 Monocytes # 1.0 H Eosinophils # 0.1 Basophils # 0.1 Nucleated Red Blood Cells # 0.0 Sodium Level 143 Potassium Level 3.5 Chloride Level 111 H Carbon Dioxide Level 23 Anion Gap 9 Blood Urea Nitrogen 6 L Creatinine 0.70 Est Glomerular Filtrat Rate mL/min Glucose Level 114 Calcium Level 10.0 Total Bilirubin 0.5 Direct Bilirubin 0.00 Indirect Bilirubin 0.5 Aspartate Amino Transf (AST/SGOT) 22 Alanine Aminotransferase (ALT/SGPT) 14 Alkaline Phosphatase 55 Lactate Dehydrogenase 567 Total Protein 7.0 Albumin 3.8 Globulin 3.20 Albumin/Globulin Ratio 1.18 Subjective 24 Hr Interval Summary Free Text/Dictation MRI with renal lesion Pelvic US with endometrial thickening I discussed both findings with the patients daughter Patient feels better, no more GI complaints Exam/Review of Systems Exam Vitals Vital Signs Date Temp Pulse Resp B/P (MAP) Pulse Ox O2 O2 Flow FiO2 Time Delivery Rate 12/06/18 98.1 72 18 206/91 96 Room Air 14:00 (129) Intake and Output 12/05/18 12/05/18 12/06/18 1515:00 23:00 07:00 IntakeIntake Total 520 ml 1110 ml 890 ml BalanceBalance 520 ml 1110 ml 890 ml Results Results 24hrs Laboratory Tests Test 12/06/18 05:32 White Blood Count 12.5 #H Red Blood Count 4.02 L Hemoglobin 12.5 Hematocrit 38.5 Mean Corpuscular Volume 95.8 Mean Corpuscular Hemoglobin 31.1 Mean Corpuscular Hemoglobin Concent 32.5 Red Cell Distribution Width 13.2 Platelet Count 242 Mean Platelet Volume 9.1 Immature Granulocytes % 0.600 H Neutrophils % 77.2 H Lymphocytes % 13.0 L Monocytes % 7.6 Eosinophils % 0.6 Basophils % 1.0 Nucleated Red Blood Cells % 0.0 Immature Granulocytes # 0.080 H Neutrophils # 9.6 H Lymphocytes # 1.6 Monocytes # 1.0 H Eosinophils # 0.1 Basophils # 0.1 Nucleated Red Blood Cells # 0.0 Sodium Level 143 Potassium Level 3.5 Chloride Level 111 H Carbon Dioxide Level 23 Anion Gap 9 Blood Urea Nitrogen 6 L Creatinine 0.70 Est Glomerular Filtrat Rate mL/min Glucose Level 114 Calcium Level 10.0 Total Bilirubin 0.5 Direct Bilirubin 0.00 Indirect Bilirubin 0.5 Aspartate Amino Transf (AST/SGOT) 22 Alanine Aminotransferase (ALT/SGPT) 14 Alkaline Phosphatase 55 Lactate Dehydrogenase 567 Total Protein 7.0 Albumin 3.8 Globulin 3.20 Albumin/Globulin Ratio 1.18 Medications Medication Current Medications IV Flush (NS 3 ml) 3 ml PER PROTOCOL IV ; Start 12/05/18 at 00:00 Ondansetron HCl (Zofran Inj) 4 mg Q6H PRN IV NAUSEA/VOMITING; Start 12/05/18 at 00:00 Acetaminophen (Tylenol Tab) 650 mg Q6H PRN PO .PAIN 1-3 OR TEMP Last administered on 12/05/18at 07:49; Admin Dose 650 MG; Start 12/05/18 at 00:00 Docusate Sodium (Colace) 100 mg Q12H PRN PO .CONSTIPATION; Start 12/05/18 at 00:00 Bisacodyl (Dulcolax) 5 mg DAILY PRN PO .CONSTIPATION; Start 12/05/18 at 00:00 Ceftriaxone Sodium 50 ml @ 100 mls/hr Q24H IVPB Last administered on 12/05/18 21:06; Admin Dose 100 MLS/HR; Start 12/05/18 at 21:00 Atorvastatin Calcium (Lipitor) 20 mg QHS PO Last administered on 12/05/18 21:06; Admin Dose 20 MG; Start 12/05/18 at 21:00 Ferrous Sulfate (Ferrous Sulfate (Ec)) 325 mg QAM PO Last administered on 12/06/18 08:20; Admin Dose 325 MG; Start 12/05/18 at 09:00 Losartan Potassium (Cozaar) 25 mg QAM PO Last administered on 12/06/18 08:20; Admin Dose 25 MG; Start 12/05/18 at 09:00 Metoprolol Succinate (Toprol Xl) 50 mg DAILY PO Last administered on 12/06/18 08:21; Admin Dose 50 MG; Start 12/05/18 at 09:00 Phenol (Cepastat Lozenge) 1 lozenge Q1H PRN MT cough Last administered on 12/06/18 11:09; Admin Dose 1 LOZENGE; Start 12/05/18 at 13:30 Vancomycin HCl (Vanco Iv Per Pharmacy) VANCOMYCIN PER PHARMACY PER PROTOCOL XX ; Start 12/05/18 at 15:00 Vancomycin/Sodium Chloride 250 ml @ 125 mls/hr Q24H IVPB ; Start 12/06/18 at 17:00 Hydralazine HCl (Apresoline) 5 mg Q8H PRN IV systolic > 180 Last administered on 12/06/18at 15:14; Admin Dose 5 MG; Start 12/06/18 at 15:30 MAHOGANY BLAKE MD Dec 06, 2018 16:22
[2018-12-06] MEDS: VANCOMYCIN 750 MG (PMX) 250 ML IVPB SCH (18:27)
[2018-12-06 20:00] VITALS: BP 130/84; PULSE 94; RESP 18
[2018-12-06] MEDS: ATORVASTATIN 20 MG TAB PO SCH (21:00)
[2018-12-06] MEDS: CEFTRIAXONE 1 GM/50 ML (PMX) 50 ML IVPB SCH (22:31)
[2018-12-07 02:00] VITALS: BP 136/71; PULSE 89; RESP 17
[2018-12-07 08:03] VITALS: BP 136/69; PULSE 71; RESP 18
[2018-12-07] MEDS: CEPASTAT LOZENGE MT PRN ×3 (08:18→19:59)
[2018-12-07] MEDS: FERROUS SULFATE (EC) 325 MG TAB PO SCH (08:18)
[2018-12-07] MEDS: METOPROLOL (XL) 50 MG TAB PO SCH (08:18)
[2018-12-07] MEDS: LOSARTAN 25 MG TAB PO SCH (08:18)
--- NOTE | 2018-12-07 12:46 | CONS ---
Assessment/Plan Assessment/Plan Hospital Course (Demo Recall) 88 yo with abdominal pain, CT AP shows 2 complex renal masses in left kidney suspicious for malignancy -US pelvis: Thickened endometrium with cystic changes. rec out pt tissue sampling if family and patient want to pursue -MRI was limited due to motion but findings include:Two heterogeneously enhancing lesions are seen arising from the mid/upper pole of the left kidney, concerning for multifocal renal malignancy -no tumor markers are helpful in making or supporting a diagnosis of RCCa check LDH for prognostication given above radiographic findings it is concerning for malignancy. workup can be continued as outpatient she is ok for discharge from an oncologic perspective with followup as an outpt will speak to her daughter Consultation Date/Type/Reason Admit Date/Time Dec 05, 2018 at 07:22 Initial Consult Date Date/Time of Note DATE: 12/07/18 TIME: 12:43 24 HR Interval Summary Free Text/Dictation working with PT now Exam/Review of Systems Exam Vitals Vital Signs Date Temp Pulse Resp B/P (MAP) Pulse Ox O2 O2 Flow FiO2 Time Delivery Rate 12/07/18 98.1 71 18 136/69 97 Room Air 08:03 (91) Intake and Output 12/06/18 12/06/18 12/07/18 1515:00 23:00 07:00 IntakeIntake Total 1460 ml 250 ml 50 ml BalanceBalance 1460 ml 250 ml 50 ml Constitutional: frail Psych: no complaints, nl mood/affect Musculoskeletal: nl extremities to inspection, nl gait and stance Neurological: PLYWOOD PATCHER II-XII intact, nl mental status, nl speech, nl strength Results Result Diagram: 12/07/18 0746 12/07/18 0747 Results 24hrs Laboratory Tests Test 12/07/18 07:46 12/07/18 07:47 White Blood Count 11.4 H Red Blood Count 4.34 Hemoglobin 13.4 Hematocrit 40.8 Mean Corpuscular Volume 94.0 Mean Corpuscular Hemoglobin 30.9 Mean Corpuscular Hemoglobin Concent 32.8 Red Cell Distribution Width 13.4 Platelet Count 247 Mean Platelet Volume 9.1 Immature Granulocytes % 0.700 H Neutrophils % 72.0 Lymphocytes % 16.2 Monocytes % 8.7 Eosinophils % 1.4 Basophils % 1.0 Nucleated Red Blood Cells % 0.0 Immature Granulocytes # 0.080 H Neutrophils # 8.2 H Lymphocytes # 1.8 Monocytes # 1.0 H Eosinophils # 0.2 Basophils # 0.1 Nucleated Red Blood Cells # 0.0 Sodium Level 142 Potassium Level 3.2 L Chloride Level 109 Carbon Dioxide Level 24 Anion Gap 9 Blood Urea Nitrogen 7 Creatinine 0.67 Est Glomerular Filtrat Rate mL/min Glucose Level 100 Calcium Level 10.0 Total Bilirubin 0.5 Direct Bilirubin 0.00 Indirect Bilirubin 0.5 Aspartate Amino Transf (AST/SGOT) 22 Alanine Aminotransferase (ALT/SGPT) 15 Alkaline Phosphatase 56 Total Protein 6.9 Albumin 3.6 Globulin 3.30 H Albumin/Globulin Ratio 1.09 Medications Medication Current Medications IV Flush (NS 3 ml) 3 ml PER PROTOCOL IV ; Start 12/05/18 at 00:00 Ondansetron HCl (Zofran Inj) 4 mg Q6H PRN IV NAUSEA/VOMITING; Start 12/05/18 at 00:00 Acetaminophen (Tylenol Tab) 650 mg Q6H PRN PO .PAIN 1-3 OR TEMP Last administered on 12/05/18at 07:49; Admin Dose 650 MG; Start 12/05/18 at 00:00 Docusate Sodium (Colace) 100 mg Q12H PRN PO .CONSTIPATION; Start 12/05/18 at 00:00 Bisacodyl (Dulcolax) 5 mg DAILY PRN PO .CONSTIPATION; Start 12/05/18 at 00:00 Ceftriaxone Sodium 50 ml @ 100 mls/hr Q24H IVPB Last administered on 12/06/18at 22:31; Admin Dose 100 MLS/HR; Start 12/05/18 at 21:00 Atorvastatin Calcium (Lipitor) 20 mg QHS PO Last administered on 12/06/18at 21:00; Admin Dose 20 MG; Start 12/05/18 at 21:00 Ferrous Sulfate (Ferrous Sulfate (Ec)) 325 mg QAM PO Last administered on 12/07/18 08:18; Admin Dose 325 MG; Start 12/05/18 at 09:00 Losartan Potassium (Cozaar) 25 mg QAM PO Last administered on 12/07/18at 08:18; Admin Dose 25 MG; Start 12/05/18 at 09:00 Metoprolol Succinate (Toprol Xl) 50 mg DAILY PO Last administered on 12/07/18at 08:18; Admin Dose 50 MG; Start 12/05/18 at 09:00 Phenol (Cepastat Lozenge) 1 lozenge Q1H PRN MT cough Last administered on 12/07/18at 11:36; Admin Dose 1 LOZENGE; Start 12/05/18 at 13:30 Vancomycin HCl (Vanco Iv Per Pharmacy) VANCOMYCIN PER PHARMACY PER PROTOCOL XX ; Start 12/05/18 at 15:00 Vancomycin/Sodium Chloride 250 ml @ 125 mls/hr Q24H IVPB Last administered on 12/06/18at 18:27; Admin Dose 125 MLS/HR; Start 12/06/18 at 17:00 Hydralazine HCl (Apresoline) 5 mg Q8H PRN IV systolic > 180 Last administered on 12/06/18at 15:14; Admin Dose 5 MG; Start 12/06/18 at 15:30 TANESHA GOOD Dec 07, 2018 12:46
--- NOTE | 2018-12-07 13:51 | CONS ---
DATE OF ADMISSION: 12/05/2018 DATE OF CONSULTATION: 12/07/2018 TYPE OF CONSULTATION: Infectious disease. REASON FOR CONSULTATION: Antibiotic management. HISTORY OF PRESENT ILLNESS: Mely Schwarz is an 88-year-old female with numerous problems who comes in with vomiting for 2 days and is being seen for antibiotic management. Her past problems include hype rtension. The patient presents with epigastric abdominal pain of 3 days' duration that was constant, nonradiating with nausea, vomiting without diarrhea and without blood. Her past problems include in addition to hypertension of hyperlipidemia. She denies surgical history, but her daughter says she had surgery, but is not sure what kind. FAMILY HISTORY: Noncontributory. SOCIAL HISTORY: She does not smoke, drink or abuse drugs. ALLERGIES: PENICILLIN. MEDICATIONS: Per chart. REVIEW OF SYSTEMS: As per HPI. On admission, white count is 11.1 with 63% neutrophils, H and H of 14 and 42.9, platelet count 265,00 0. BUN and creatinine is 15/0.90, glucose of 98. The patient had a CT scan of the abdomen and pelvi s without abnormalities. 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 Her urinalysis showed 3+ leukocyte esterase, greater than 182 wh ite cells per high powered field consistent with urinary tract infection. Blood cultures grew out Br anhamella catarrhalis and Staph species. Urine grew out K. pneumonia, subspecies pneumoniae. She wahl d 2 blood cultures positive for Branhamella catarrhalis. The K. pneumoniae was sensitive to everythi ng. The patient was begun on vancomycin and ceftriaxone. She was seen by GI, . White count on 12/05/2018 was 10,000. The patient has 2 complex renal masses in the left kidney suspicious for mal ignancy. Check MRI abdomen and pelvis. She has a complex appearing 2.1 cm lesion within the anterio r aspect of the upper pole of the left kidney with evidence of mild enhancement as well as 1.5 cm les ion within the left side of the mid pole of left kidney with evidence of positive enhancement in both lesions are suspicious for malignancy such as renal cell carcinoma. She has UTI. She has gram-posi tive coccus hospital contaminant in her blood. White count on 12/06/2018 was 12.5. PHYSICAL EXAMINATION: GENERAL: The patient is in no acute distress. VITAL SIGNS: Stable. She is afebrile. SKIN: Without generalized rash. HEENT: Within normal limits. NECK: Supple. LYMPH NODES: None palpable. CHEST: Decreased breath sounds at the bases. HEART: Without murmur or gallop. ABDOMEN: Soft, nontender without organosplenomegaly or masses. EXTREMITIES: Without cyanosis, clubbing or edema. RECTAL AND GENITAL: Deferred. NEUROLOGICAL: No focal neurological abnormality. IMPRESSION AND PLAN: The patient has urinary tract infection, but she also has Branhamella catarrhal is which should be sensitive to even ceftriaxone with which she is on. I will dictate my findings to the hospitalist. We will await further workup with regard to possibility of renal cell carcinoma. Dictated By: CONNOR CHAMPION MD, JD/NTS Conf#: [id number] DID#: [id number] CC: MAHOGANY BLAKE MD; REBECCA CABRERA MD;*EndCC*
[2018-12-07 14:00] VITALS: BP 132/72; PULSE 84; RESP 18
--- NOTE | 2018-12-07 14:46 | PN ---
Date/Time of Note Date/Time of Note DATE: 12/07/18 TIME: 14:45 Assessment/Plan VTE Prophylaxis Risk score (from Ns)>0 risk: 3 SCD applied (from Ns): Yes Pharmacological prophylaxis: heparin Lines/Catheters IV Catheter Type (from Nrsg): Saline Lock Urinary Cath still in place: No Assessment/Plan Hospital Course EXAM: General well appearing no distress AO RRR CTAB Soft nt nd 88 yo female with hypertension who presents with abdominal pain likely 2/2 UTI UTI with bacteremi: - Continue ceftriaxone course per ID. PICC to be placed GPC bacteremia - Continue vanco, possible contaminant Renal, endometrial, thyroid lesions: - Discuss with isabella'ts daughter. Josep will follow up for surveillance as an outpatient Hypertension: - Continue home meds Dc to home tomorrow hopefully Result Diagram: 12/07/18 0746 12/07/18 0747 Results 24hrs Laboratory Tests Test 12/07/18 07:46 12/07/18 07:47 White Blood Count 11.4 H Red Blood Count 4.34 Hemoglobin 13.4 Hematocrit 40.8 Mean Corpuscular Volume 94.0 Mean Corpuscular Hemoglobin 30.9 Mean Corpuscular Hemoglobin Concent 32.8 Red Cell Distribution Width 13.4 Platelet Count 247 Mean Platelet Volume 9.1 Immature Granulocytes % 0.700 H Neutrophils % 72.0 Lymphocytes % 16.2 Monocytes % 8.7 Eosinophils % 1.4 Basophils % 1.0 Nucleated Red Blood Cells % 0.0 Immature Granulocytes # 0.080 H Neutrophils # 8.2 H Lymphocytes # 1.8 Monocytes # 1.0 H Eosinophils # 0.2 Basophils # 0.1 Nucleated Red Blood Cells # 0.0 Sodium Level 142 Potassium Level 3.2 L Chloride Level 109 Carbon Dioxide Level 24 Anion Gap 9 Blood Urea Nitrogen 7 Creatinine 0.67 Est Glomerular Filtrat Rate mL/min Glucose Level 100 Calcium Level 10.0 Total Bilirubin 0.5 Direct Bilirubin 0.00 Indirect Bilirubin 0.5 Aspartate Amino Transf (AST/SGOT) 22 Alanine Aminotransferase (ALT/SGPT) 15 Alkaline Phosphatase 56 Total Protein 6.9 Albumin 3.6 Globulin 3.30 H Albumin/Globulin Ratio 1.09 Subjective 24 Hr Interval Summary Free Text/Dictation Symptoms improved BC growing branhamella catarrhalis Exam/Review of Systems Exam Vitals Vital Signs Date Temp Pulse Resp B/P (MAP) Pulse Ox O2 O2 Flow FiO2 Time Delivery Rate 12/07/18 97.8 84 18 132/72 94 Room Air 14:00 (92) Intake and Output 12/06/18 12/06/18 12/07/18 1414:59 22:59 06:59 IntakeIntake Total 1460 ml 250 ml 50 ml BalanceBalance 1460 ml 250 ml 50 ml Results Results 24hrs Laboratory Tests Test 12/07/18 07:46 12/07/18 07:47 White Blood Count 11.4 H Red Blood Count 4.34 Hemoglobin 13.4 Hematocrit 40.8 Mean Corpuscular Volume 94.0 Mean Corpuscular Hemoglobin 30.9 Mean Corpuscular Hemoglobin Concent 32.8 Red Cell Distribution Width 13.4 Platelet Count 247 Mean Platelet Volume 9.1 Immature Granulocytes % 0.700 H Neutrophils % 72.0 Lymphocytes % 16.2 Monocytes % 8.7 Eosinophils % 1.4 Basophils % 1.0 Nucleated Red Blood Cells % 0.0 Immature Granulocytes # 0.080 H Neutrophils # 8.2 H Lymphocytes # 1.8 Monocytes # 1.0 H Eosinophils # 0.2 Basophils # 0.1 Nucleated Red Blood Cells # 0.0 Sodium Level 142 Potassium Level 3.2 L Chloride Level 109 Carbon Dioxide Level 24 Anion Gap 9 Blood Urea Nitrogen 7 Creatinine 0.67 Est Glomerular Filtrat Rate mL/min Glucose Level 100 Calcium Level 10.0 Total Bilirubin 0.5 Direct Bilirubin 0.00 Indirect Bilirubin 0.5 Aspartate Amino Transf (AST/SGOT) 22 Alanine Aminotransferase (ALT/SGPT) 15 Alkaline Phosphatase 56 Total Protein 6.9 Albumin 3.6 Globulin 3.30 H Albumin/Globulin Ratio 1.09 Medications Medication Current Medications IV Flush (NS 3 ml) 3 ml PER PROTOCOL IV ; Start 12/05/18 at 00:00 Ondansetron HCl (Zofran Inj) 4 mg Q6H PRN IV NAUSEA/VOMITING; Start 12/05/18 at 00:00 Acetaminophen (Tylenol Tab) 650 mg Q6H PRN PO .PAIN 1-3 OR TEMP Last administered on 12/05/18at 07:49; Admin Dose 650 MG; Start 12/05/18 at 00:00 Docusate Sodium (Colace) 100 mg Q12H PRN PO .CONSTIPATION; Start 12/05/18 at 00:00 Bisacodyl (Dulcolax) 5 mg DAILY PRN PO .CONSTIPATION; Start 12/05/18 at 00:00 Ceftriaxone Sodium 50 ml @ 100 mls/hr Q24H IVPB Last administered on 12/06/18at 22:31; Admin Dose 100 MLS/HR; Start 12/05/18 at 21:00 Atorvastatin Calcium (Lipitor) 20 mg QHS PO Last administered on 12/06/18 21:00; Admin Dose 20 MG; Start 12/05/18 at 21:00 Ferrous Sulfate (Ferrous Sulfate (Ec)) 325 mg QAM PO Last administered on 12/07/18 08:18; Admin Dose 325 MG; Start 12/05/18 at 09:00 Losartan Potassium (Cozaar) 25 mg QAM PO Last administered on 12/07/18 08:18; Admin Dose 25 MG; Start 12/05/18 at 09:00 Metoprolol Succinate (Toprol Xl) 50 mg DAILY PO Last administered on 12/07/18 08:18; Admin Dose 50 MG; Start 12/05/18 at 09:00 Phenol (Cepastat Lozenge) 1 lozenge Q1H PRN MT cough Last administered on 12/07/18at 11:36; Admin Dose 1 LOZENGE; Start 12/05/18 at 13:30 Vancomycin HCl (Vanco Iv Per Pharmacy) VANCOMYCIN PER PHARMACY PER PROTOCOL XX ; Start 12/05/18 at 15:00 Vancomycin/Sodium Chloride 250 ml @ 125 mls/hr Q24H IVPB Last administered on 12/06/18at 18:27; Admin Dose 125 MLS/HR; Start 12/06/18 at 17:00 Hydralazine HCl (Apresoline) 5 mg Q8H PRN IV systolic > 180 Last administered on 12/06/18at 15:14; Admin Dose 5 MG; Start 12/06/18 at 15:30 Miscellaneous Information (*Rx Drug Level Order Reminder*) VANCO TROUGH ON 11/20... 1700 ONCE XX ; Start 12/07/18 at 17:00; Stop 12/07/18 at 17:01 MAHOGANY BLAKE MD Dec 07, 2018 14:46
[2018-12-07] MEDS ORDERED: LIDOCAINE 1% (MPF) 5 ML VIAL SC ONE (15:00)
[2018-12-07] MEDS: VANCOMYCIN 750 MG (PMX) 250 ML IVPB SCH (17:31)
[2018-12-07] MEDS: CEFTRIAXONE 1 GM/50 ML (PMX) 50 ML IVPB SCH (19:59)
[2018-12-07] MEDS: ATORVASTATIN 20 MG TAB PO SCH (19:59)
[2018-12-07 20:14] VITALS: BP 133/62; PULSE 59; RESP 18
[2018-12-08 02:20] VITALS: BP 140/67; PULSE 78; RESP 18
[2018-12-08 08:00] VITALS: BP 128/69; PULSE 72; RESP 18
[2018-12-08] MEDS: CEPASTAT LOZENGE MT PRN ×2 (08:02→13:43)
[2018-12-08] MEDS: LOSARTAN 25 MG TAB PO SCH (08:23)
[2018-12-08] MEDS: FERROUS SULFATE (EC) 325 MG TAB PO SCH (08:24)
[2018-12-08] MEDS: METOPROLOL (XL) 50 MG TAB PO SCH (08:24)
--- NOTE | 2018-12-08 13:17 | CONS ---
Assessment/Plan Assessment/Plan Assessment/Plan (Daily) A 88 yo female is seen for Renal mass; # abdominal pain - CT AP shows 2 complex renal masses in left kidney suspicious for malignancy - US pelvis: Thickened endometrium with cystic changes. rec out pt tissue sampling if family and patient want to pursue - MRI was limited due to motion but findings include:Two heterogeneously enhancing lesions are seen arising from the mid/upper pole of the left kidney, concerning for multifocal renal malignancy - no tumor markers are helpful in making or supporting a diagnosis of RCCa - LDH for prognostication -[id number] As from above radiographic findings it is concerning for malignancy. workup can be continued as outpatient she is ok for discharge from an oncologic perspective with followup as an outpt- Patient is seen in collaboration with Dr Neil. Consultation Date/Type/Reason Admit Date/Time Dec 05, 2018 at 07:22 Initial Consult Date Type of Consult ONCOLOGY/HEMATOLOGY Reason for Consultation RENAL MASS Date/Time of Note DATE: 12/08/18 TIME: 13:14 24 HR Interval Summary Free Text/Dictation resting in bed; ;seems comfortable denies any pain n new events reported fro, last night dw staff Detailed Summary Eyes: no complaints Exam/Review of Systems Exam Vitals Vital Signs Date Temp Pulse Resp B/P (MAP) Pulse Ox O2 O2 Flow FiO2 Time Delivery Rate 12/08/18 98.0 72 18 128/69 98 08:00 (88) 12/07/18 Room Air 14:00 Intake and Output 12/07/18 12/07/18 12/08/18 1515:00 23:00 07:00 IntakeIntake Total 540 ml 840 ml 500 ml BalanceBalance 540 ml 840 ml 500 ml Constitutional: alert, well developed Head: atraumatic Eyes: nl lids ENMT: nl external ears & nose Neck: non-tender Respiratory: clear to auscultation Cardiovascular: nl pulses, other (S1S1) Gastrointestinal: soft, non-tender Musculoskeletal: nl extremities to inspection Extremities: normal pulses Neurological: other (alert/responsive) Lymph: nontender Results Result Diagram: 12/08/18 0644 12/08/18 0619 Results 24hrs Laboratory Tests Test 12/08/18 06:19 12/08/18 06:44 Sodium Level 139 Potassium Level 3.2 L Chloride Level 106 Carbon Dioxide Level 23 Anion Gap 10 Blood Urea Nitrogen 9 Creatinine 0.75 Est Glomerular Filtrat Rate mL/min Glucose Level 144 # Calcium Level 9.5 Total Bilirubin 0.5 Direct Bilirubin 0.00 Indirect Bilirubin 0.5 Aspartate Amino Transf (AST/SGOT) 20 Alanine Aminotransferase (ALT/SGPT) 10 L Alkaline Phosphatase 47 Total Protein 6.4 Albumin 3.5 Globulin 2.90 Albumin/Globulin Ratio 1.20 White Blood Count 11.4 H Red Blood Count 4.12 L Hemoglobin 12.7 Hematocrit 39.3 Mean Corpuscular Volume 95.4 Mean Corpuscular Hemoglobin 30.8 Mean Corpuscular Hemoglobin Concent 32.3 Red Cell Distribution Width 13.2 Platelet Count 244 Mean Platelet Volume 9.0 Immature Granulocytes % 0.500 H Neutrophils % 65.7 Lymphocytes % 20.4 Monocytes % 10.1 Eosinophils % 2.1 Basophils % 1.2 Nucleated Red Blood Cells % 0.0 Immature Granulocytes # 0.060 H Neutrophils # 7.5 Lymphocytes # 2.3 Monocytes # 1.2 H Eosinophils # 0.2 Basophils # 0.1 Nucleated Red Blood Cells # 0.0 Medications Medication Current Medications IV Flush (NS 3 ml) 3 ml PER PROTOCOL IV ; Start 12/05/18 at 00:00 Ondansetron HCl (Zofran Inj) 4 mg Q6H PRN IV NAUSEA/VOMITING Last administered on 12/08/18at 01:51; Admin Dose 4 MG; Start 12/05/18 at 00:00 Acetaminophen (Tylenol Tab) 650 mg Q6H PRN PO .PAIN 1-3 OR TEMP Last administered on 12/05/18at 07:49; Admin Dose 650 MG; Start 12/05/18 at 00:00 Docusate Sodium (Colace) 100 mg Q12H PRN PO .CONSTIPATION; Start 12/05/18 at 00:00 Bisacodyl (Dulcolax) 5 mg DAILY PRN PO .CONSTIPATION; Start 12/05/18 at 00:00 Ceftriaxone Sodium 50 ml @ 100 mls/hr Q24H IVPB Last administered on 12/07/18at 19:59; Admin Dose 100 MLS/HR; Start 12/05/18 at 21:00 Atorvastatin Calcium (Lipitor) 20 mg QHS PO Last administered on 12/07/18at 19:59; Admin Dose 20 MG; Start 12/05/18 at 21:00 Ferrous Sulfate (Ferrous Sulfate (Ec)) 325 mg QAM PO Last administered on 12/08/18 08:24; Admin Dose 325 MG; Start 12/05/18 at 09:00 Losartan Potassium (Cozaar) 25 mg QAM PO Last administered on 12/08/18 08:23; Admin Dose 25 MG; Start 12/05/18 at 09:00 Metoprolol Succinate (Toprol Xl) 50 mg DAILY PO Last administered on 12/08/18 08:24; Admin Dose 50 MG; Start 12/05/18 at 09:00 Phenol (Cepastat Lozenge) 1 lozenge Q1H PRN MT cough Last administered on 12/08/18 08:02; Admin Dose 1 LOZENGE; Start 12/05/18 at 13:30 Vancomycin HCl (Vanco Iv Per Pharmacy) VANCOMYCIN PER PHARMACY PER PROTOCOL XX ; Start 12/05/18 at 15:00 Vancomycin/Sodium Chloride 250 ml @ 125 mls/hr Q24H IVPB Last administered on 12/07/18at 17:31; Admin Dose 125 MLS/HR; Start 12/06/18 at 17:00 Hydralazine HCl (Apresoline) 5 mg Q8H PRN IV systolic > 180 Last administered on 12/06/18at 15:14; Admin Dose 5 MG; Start 12/06/18 at 15:30 Lidocaine (Xylocaine 1% (Mpf)) 5 ml ONCE ONCE SC ; Start 12/08/18 at 19:00; Stop 12/08/18 at 19:01 Miscellaneous Information (*Rx Drug Level Order Reminder*) 1 1600 ONCE XX ; Start 12/08/18 at 16:00; Stop 12/08/18 at 16:01 LIVIA LARKIN Dec 08, 2018 13:17
[2018-12-08 14:00] VITALS: BP 115/65; PULSE 65; RESP 18
--- NOTE | 2018-12-08 14:03 | DS ---
Date/Time of Note Date/Time of Note DATE: 12/08/18 TIME: 14:01 Discharge Summary Admission/Discharge Info Admit Date/Time Dec 05, 2018 at 07:22 Discharge Date/Time Discharge Diagnosis UTI Patient Condition: Stable Hospital Course 88 yo female with hypertension who presents with abdominal pain. Urinalysis showed UTI and blood cultures were positive. She was seen by ID consult who recommended ceftriaxone course which will be completed at home via PICC line Patient was found imaging to have a lesion on her kidney concerning for malignancy. She and her daughter were advised to follow up with urologist as an outpatient for management She was also found to have endometrial thickening on imaging and she and her daughter were advised to follow up with a psychological aide as an outpatient Home Meds Reported Medications Metoprolol Succinate* (Toprol XL*) 50 Mg Tab.er.24h, 50 MG PO DAILY, #30 TAB 12/04/18 Dexlansoprazole (Dexilant) 30 Mg Cap.drToñamp, 30 MG PO DAILY PRN for GASTROINTESTINAL UPSET, #30 CAP 12/04/18 Losartan Potassium* (Losartan Potassium*) 25 Mg Tablet, 25 MG PO QAM, TAB 12/04/18 Gabapentin* (Gabapentin*) 300 Mg Capsule, 300 MG PO BID, #60 CAP 12/04/18 Clopidogrel Bisulfate* (Clopidogrel Bisulfate*) 75 Mg Tablet, 75 MG PO DAILY, #30 TAB 12/04/18 Ramipril (Ramipril) 10 Mg Capsule, 10 MG PO DAILY, CAP 12/04/18 Megestrol Acetate* (Megestrol Acetate*) 40 Mg Tablet, 40 MG PO QAM, TAB 12/04/18 Ranolazine* (Ranexa*) 500 Mg Tab.sr.12h, 500 MG PO Q12, TAB 12/04/18 Ferrous Sulfate* (Ferrous Sulfate*) 325 Mg Tabec, 325 MG PO QAM, TAB 12/04/18 Atorvastatin Calcium* (Atorvastatin Calcium*) 20 Mg Tablet, 20 MG PO QHS, #30 TAB 12/04/18 Primary Care Provider Not On Staff Doctor Pending Labs Laboratory Tests Test 12/08/18 06:19 12/08/18 06:44 Sodium Level 139 mmol/L (135-144) Potassium Level 3.2 mmol/L (3.5-5.1) Chloride Level 106 mmol/L (97-110) Carbon Dioxide Level 23 mmol/L (21-31) Anion Gap 10 (5-13) Blood Urea Nitrogen 9 mg/dl (7-20) Creatinine 0.75 mg/dl (0.44-1.00) Est Glomerular Filtrat mL/min (>60) Rate mL/min Glucose Level 144 mg/dl (70-220) Calcium Level 9.5 mg/dl (8.4-10.2) Total Bilirubin 0.5 mg/dl (0.2-1.3) Direct Bilirubin 0.00 mg/dl (0.00-0.20) Indirect Bilirubin 0.5 mg/dl (0-1.1) Aspartate Amino 20 IU/L (15-46) Transf (AST/SGOT) Alanine 10 IU/L (13-69) Aminotransferase (ALT/SGPT) Alkaline Phosphatase 47 IU/L (42-121) Total Protein 6.4 g/dl (6.1-8.1) Albumin 3.5 g/dl (3.3-4.9) Globulin 2.90 g/dl (1.3-3.2) Albumin/Globulin Ratio 1.20 White Blood Count 11.4 10^3/ul (4.8-10.8) Red Blood Count 4.12 10^6/ul (4.20-5.40) Hemoglobin 12.7 g/dl (12.0-16.0) Hematocrit 39.3 % (37.0-47.0) Mean Corpuscular Volume 95.4 fl (82.0-101.0) Mean Corpuscular Hemoglobin 30.8 pg (29.0-33.0) Mean Corpuscular 32.3 g/dl (32.0-37.0) Hemoglobin Concent Red Cell Distribution Width 13.2 % (11.5-14.5) Platelet Count 244 10^3/UL (140-415) Mean Platelet Volume 9.0 fl (7.4-10.4) Immature Granulocytes % 0.500 % (0.001-0.429) Neutrophils % 65.7 % (39.0-77.0) Lymphocytes % 20.4 % (15.0-51.0) Monocytes % 10.1 % (0.0-11.0) Eosinophils % 2.1 % (0.0-7.0) Basophils % 1.2 % (0.0-2.0) Nucleated Red Blood Cells % 0.0 /100WBC (0.0-0.0) Immature Granulocytes # 0.060 10^3/ul (0.0-0.031) Neutrophils # 7.5 10^3/ul (1.6-7.5) Lymphocytes # 2.3 10^3/ul (0.8-2.9) Monocytes # 1.2 10^3/ul (0.3-0.9) Eosinophils # 0.2 10^3/ul (0.0-0.5) Basophils # 0.1 10^3/ul (0.0-0.1) Nucleated Red Blood Cells # 0.0 10^3/ul (0.0-0.0) MAHOGANY BLAKE MD Dec 08, 2018 14:03
--- NOTE | 2018-12-08 14:04 | PDOCDIS ---
Discharge Instructions DIAGNOSIS Discharge Diagnosis UTI CONDITION [id number] Patient Condition: [id number] Stable FOLLOW UP/APPOINTMENTS Follow-up Plan Make an appointment with a urologist to discuss management of your kidney tumor Make an appointment with a high school home economics teacher to discuss management of thickening in your uterus which may also be a tumor MAHOGANY BLAKE MD Dec 08, 2018 14:04
--- NOTE | 2018-12-08 14:59 | CONS ---
Assessment/Plan Assessment/Plan Hospital Course (Demo Recall) Patient is alert looks comfortable denies pain. No fevers overnight. WBC 11.4 no shift no bands BUN 9 creatinine 0.75 Microbiology: Blood culture on admission grew Branhamella catarrhalis, urine culture growing Klebsiella pneumonia Antimicrobials: Rocephin status post vancomycin Physical examination fragile well-developed chronically ill-appearing elderly woman who is awake in no distress. Head atraumatic normocephalic neck is supple chest rise symmetrical breath sounds diminished bases heart: S1-S2 abdomen soft bowel sounds present extremities without cyanosis Assessment: 1. Branhamella catarrhalis bacteremia of unclear source 2. Urinary tract infection 3. 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 Hypertension Plan: Patient remains stable, oncology recommendations noted, continue antibiotics to complete 2 weeks, follow repeat blood cultures Consultation Date/Type/Reason Admit Date/Time Dec 05, 2018 at 07:22 Initial Consult Date Type of Consult id Date/Time of Note DATE: 12/08/18 TIME: 14:58 Exam/Review of Systems Exam Vitals Vital Signs Date Temp Pulse Resp B/P (MAP) Pulse Ox O2 O2 Flow FiO2 Time Delivery Rate 12/08/18 98.0 65 18 115/65 96 14:00 (82) 12/07/18 Room Air 14:00 Intake and Output 12/07/18 12/07/18 12/08/18 1515:00 23:00 07:00 IntakeIntake Total 540 ml 840 ml 500 ml BalanceBalance 540 ml 840 ml 500 ml Results Result Diagram: 12/08/18 0644 12/08/18 0619 Results 24hrs Laboratory Tests Test 12/08/18 06:19 12/08/18 06:44 Sodium Level 139 Potassium Level 3.2 L Chloride Level 106 Carbon Dioxide Level 23 Anion Gap 10 Blood Urea Nitrogen 9 Creatinine 0.75 Est Glomerular Filtrat Rate mL/min Glucose Level 144 # Calcium Level 9.5 Total Bilirubin 0.5 Direct Bilirubin 0.00 Indirect Bilirubin 0.5 Aspartate Amino Transf (AST/SGOT) 20 Alanine Aminotransferase (ALT/SGPT) 10 L Alkaline Phosphatase 47 Total Protein 6.4 Albumin 3.5 Globulin 2.90 Albumin/Globulin Ratio 1.20 White Blood Count 11.4 H Red Blood Count 4.12 L Hemoglobin 12.7 Hematocrit 39.3 Mean Corpuscular Volume 95.4 Mean Corpuscular Hemoglobin 30.8 Mean Corpuscular Hemoglobin Concent 32.3 Red Cell Distribution Width 13.2 Platelet Count 244 Mean Platelet Volume 9.0 Immature Granulocytes % 0.500 H Neutrophils % 65.7 Lymphocytes % 20.4 Monocytes % 10.1 Eosinophils % 2.1 Basophils % 1.2 Nucleated Red Blood Cells % 0.0 Immature Granulocytes # 0.060 H Neutrophils # 7.5 Lymphocytes # 2.3 Monocytes # 1.2 H Eosinophils # 0.2 Basophils # 0.1 Nucleated Red Blood Cells # 0.0 Medications Medication Current Medications IV Flush (NS 3 ml) 3 ml PER PROTOCOL IV ; Start 12/05/18 at 00:00 Ondansetron HCl (Zofran Inj) 4 mg Q6H PRN IV NAUSEA/VOMITING Last administered on 12/08/18at 01:51; Admin Dose 4 MG; Start 12/05/18 at 00:00 Acetaminophen (Tylenol Tab) 650 mg Q6H PRN PO .PAIN 1-3 OR TEMP Last administered on 12/05/18at 07:49; Admin Dose 650 MG; Start 12/05/18 at 00:00 Docusate Sodium (Colace) 100 mg Q12H PRN PO .CONSTIPATION; Start 12/05/18 at 00:00 Bisacodyl (Dulcolax) 5 mg DAILY PRN PO .CONSTIPATION; Start 12/05/18 at 00:00 Ceftriaxone Sodium 50 ml @ 100 mls/hr Q24H IVPB Last administered on 12/07/18 19:59; Admin Dose 100 MLS/HR; Start 12/05/18 at 21:00 Atorvastatin Calcium (Lipitor) 20 mg QHS PO Last administered on 12/07/18 19 :59; Admin Dose 20 MG; Start 12/05/18 at 21:00 Ferrous Sulfate (Ferrous Sulfate (Ec)) 325 mg QAM PO Last administered on 12/08/18 08:24; Admin Dose 325 MG; Start 12/05/18 at 09:00 Losartan Potassium (Cozaar) 25 mg QAM PO Last administered on 12/08/18 08:23; Admin Dose 25 MG; Start 12/05/18 at 09:00 Metoprolol Succinate (Toprol Xl) 50 mg DAILY PO Last administered on 12/08/18 08:24; Admin Dose 50 MG; Start 12/05/18 at 09:00 Phenol (Cepastat Lozenge) 1 lozenge Q1H PRN MT cough Last administered on 12/08/18at 13:43; Admin Dose 1 LOZENGE; Start 12/05/18 at 13:30 Hydralazine HCl (Apresoline) 5 mg Q8H PRN IV systolic > 180 Last administered on 12/06/18at 15:14; Admin Dose 5 MG; Start 12/06/18 at 15:30 Lidocaine (Xylocaine 1% (Mpf)) 5 ml ONCE ONCE SC ; Start 12/08/18 at 19:00; Stop 12/08/18 at 19:01 IDALIA MUNOZ NP Dec 08, 2018 14:59
[2018-12-08] MEDS: CEFTRIAXONE 1 GM/50 ML (PMX) 50 ML IVPB SCH (15:06)
[2018-12-08] MEDS ORDERED: LIDOCAINE 1% (MPF) 5 ML VIAL SC ONE (19:00)
--- NOTE | 2018-12-10 14:38 | RADRPT ---
Echocardiogram Report Patient Name: SALOMON RUEDAPatient ID: [id number] : 1930 (88y 10m)Study Date: 12/07/2018 1:21:13 PM Gender: FAccession #: [id number] Tech: Calvin [facility] Location: [id number]- Ref.Physician: MAHOGANY BLAKE Height(Cm): BSA: Weight(Kg): Quality: AdequateAccount #: Procedures: Echocardiographic Report: Transthoracic echocardiogram with complete 2D, M-Mode, and doppler examination. Indications: Bacteremia. Measurements: 2D/M Mode Doppler Measurement Value Normal Range Measurement Value Normal Range LVIDd 2D 3.3 [ 3.8 - 5.2 ] cm MADELYN Vmax 1.9 [ 2.0 - 4.0 ] cm2 LVIDs 2D 2.4 [ 2.2 - 3.5 ] cm MADELYN VTI 1.4 [ 2.0 - 4.0 ] cm2 LVPWd 2D 1.1 [ 0.6 - 0.9 ] cm AV Mean Praveen 5.0 [ 70.0 - 90.0 ] cm/sec IVSd 2D 1.7 [ 0.6 - 0.9 ] cm AV Mean PG 121.0 [ 2.0 - 4.0 ] mmHg IVS/LVPW 2D 1.6 ratio AV Peak Praveen 7.1 [ 100.0 - 170.0 ] cm/sec AoR Diam 2D 2.1 [ 2.3 - 3.1 ] cm AV Peak PG 200.0 [ 2.0 - 9.0 ] mmHg LA/Ao 2D 2 ratio AV VTI 208.0 cm LA Dimen 2D 3.3 [ 2.7 - 3.8 ] cm LVOT Mean Praveen 2.8 [ 60.0 - 80.0 ] cm/sec LVOT Diam 1.9 [ 2.1 - 2.5 ] cm LVOT Mean PG 41.0 [ 1.0 - 3.0 ] mmHg LVOT Area 2.8 cm2 LVOT Peak Praveen 4.7 [ 70.0 - 110.0 ] cm/sec LVOT Peak PG 87.0 [ 2.0 - 6.0 ] mmHg LVOT VTI 103.0 [ 20.0 - 30.0 ] cm MV E Peak Praveen 0.8 [ 60.0 - 130.0 ] cm/sec MV A Peak Praveen 1.3 [ 100.0 - 120.0 ] cm/sec MV E/A 0.7 [ 0.8 - 1.5 ] ratio MV Decel Time 208 [ 104 - 258 ] msec Lat E` Praveen 0.1 [ 10.0 - 15.0 ] cm/sec MV E/A 0.7 [ 0.8 - 1.5 ] ratio TR Peak Praveen 2.8 [ 100.0 - 280.0 ] cm/sec TR Peak PG 32.0 mmHg RVSP 40.0 [ 10.0 - 36.0 ] mmHg Findings: Left Ventricle: Normal left ventricular systolic function. Normal left ventricular cavity size. Moderate hypertrophy of the basal septum. Reduced left ventricular cavity size. Ejection fraction is visually estimated at 60 %. Tissue Doppler/Mitral Doppler indices are consistent with impaired relaxation (Stage I diastolic dysfunction). Moderate left ventricular outflow tract obstruction. Right Ventricle: Normal right ventricular size. Normal right ventricular systolic function. Left Atrium: The left atrium is normal in size. Right Atrium: The right atrium is normal in size. Mitral Valve: Mild mitral leaflet calcification. Mild mitral annular calcification. Mild mitral valve regurgitation. Moderate systolic anterior motion of mitral valve. Aortic Valve: Aortic cusps appear mildly calcified. There are elevated gradients across the aortic valve, likely secondary to HOCM vs sub aortic stenosis. Mild aortic valve regurgitation. Tricuspid Valve: Normal appearance of the tricuspid valve. Estimated peak PA systolic pressure 40 mmHg. There is mild tricuspid regurgitation. Pericardium: Trivial pericardial effusion. Aorta: Normal aortic root. IVC: Normal size with poor respiratory collapse consistent with elevated right atrial pressure. Conclusions: Normal left ventricular systolic function. Normal left ventricular cavity size. Moderate hypertrophy of the basal septum. Reduced left ventricular cavity size. Ejection fraction is visually estimated at 60 %. Tissue Doppler/Mitral Doppler indices are consistent with impaired relaxation (Stage I diastolic dysfunction). Moderate left ventricular outflow tract obstruction. Normal right ventricular size. Normal right ventricular systolic function. The left atrium is normal in size. The right atrium is normal in size. Aortic cusps appear mildly calcified. There are elevated gradients across the aortic valve, likely secondary to HOCM vs sub aortic stenosis. Mild aortic valve regurgitation. Mild mitral valve regurgitation. Moderate systolic anterior motion of mitral valve. Estimated peak PA systolic pressure 40 mmHg. There is mild tricuspid regurgitation. Trivial pericardial effusion. Electronically Signed By: Roland Valel 2018-12-10 14:37:11 PDT
== END 2018-12-08 19:42 | disposition home health service (06) | DRG 690 ==
LOC: E/R 18:35 → 5EC 23:39 → OBSVTOIN 12-05 07:22 → 5EC 12-05 18:05
PROVIDERS: ADMIT Family Medicine; ATTEND Internal Medicine
DX: N39.0 Urinary tract infection, site not specified (principal); I10 Essential (primary) hypertension; E78.5 Hyperlipidemia, unspecified; I25.10 Atherosclerotic heart disease of native coronary artery without angina pectoris; K21.9 Gastro-esophageal reflux disease without esophagitis; D64.9 Anemia, unspecified; I71.2 Thoracic aortic aneurysm, without rupture; K80.20 Calculus of gallbladder without cholecystitis without obstruction; D41.01 Neoplasm of uncertain behavior of right kidney; D39.0 Neoplasm of uncertain behavior of uterus; D41.02 Neoplasm of uncertain behavior of left kidney; D44.0 Neoplasm of uncertain behavior of thyroid gland
CPT/HCPCS: 36415; 36569; 71045; 71275; 74176; 74177; 74183; 75635; 76536; 76830; 76856; 76937; 80053; 81001; 83036; 83605; 83615; 83690; 83735; 84439; 84443; 84481; 84484; 85025; 85610; 85730; 87086; 93005; 93306; 96361; 96365; 96375; 97162; 99217; G0378; J0360; J0696; J2270; J2405; J2765; J3370; J7030; Q9967